=== PATIENT | male | born 1940 | race Caucasian/White ===

== ENCOUNTER → 2017-10-02 06:45 | Outpatient (CLI) | payer MEDICARE, SELFPAY ==
[2017-10-02 07:42] LABS: Hematocrit 47.3 % (40-54); Mean Corp Hgb Conc 33.8 g/gl (32-36); Mean Corpuscular Hgb 31.3 pg (27.0-32.0); Mean Corpuscular Volume 92.4 fL (80-94); Mean Platelet Vol. 9.9 fl (6.2-12.0); Platelet Count 169 K/mm3 (150-450); RBC Distribution Width CV 13.7 % (11.6-14.6); RBC Distribution Width SD 45.9 fl (35.1-43.9); Red Blood Count 5.12 M/mm3 (4.6-6.2)
[2017-10-02 07:45] LABS: Scan Indicated on CBC? Y/N NO
[2017-10-02 08:10] LABS: Microalbumin,Random Urine 6.9 mg/L (NO RANGE EST.); Microalbumin:Creatinine Ratio 4.7 mg/g CRE (<30 mg/g CRE)
[2017-10-02 08:20] LABS: ALB/GLOB Ratio 1.1 RATIO (0.9-2.4); AST(SGOT) 44 U/L (15-37); Alanine Aminotransfer ALT/SGPT 76 U/L (16-61); Albumin, Serum 3.6 g/dL (3.2-5.0); Alkaline Phosphatase 73 U/L (45-117); Anion Gap 6 (5-15); BUN 19 mg/dL (7-18); BUN/Creat Ratio 15.6 RATIO (10-20); Calcium,Total 8.6 mg/dL (8.5-10.1); Chloride 103 mmol/L (98-107); Creatinine, Serum 1.22 mg/dL (0.70-1.30); EST Glomerular Filtration Rate 61 mL/min (>60); Est Glom Filt Rate - Afr Amer 74 mL/min (>60); Globulin 3.3 g/dL (2.2-4.2); Glucose 158 mg/dL (74-106); Potassium 4.4 mmol/L (3.5-5.1); Protein, Total 6.9 g/dL (6.4-8.2); Sodium Level 139 mmol/L (136-145); Thyroid Stim Hormone (TSH) 4.37 uIU/mL (0.358-3.74)
== END ==
PROVIDERS: Family Provider Family Medicine; PCP Family Medicine; Visit Provider Family Medicine
DX: E11.9 Type 2 diabetes mellitus without complications (principal)
CPT/HCPCS: 36415; 80053; 82043; 82570; 84443; 85027

== ENCOUNTER → 2018-09-24 06:41 | Outpatient (CLI) | payer MEDICARE, SELFPAY ==
[2018-09-24 08:07] LABS: Microalbumin,Random Urine 11.1 mg/L (NO RANGE EST.); Microalbumin:Creatinine Ratio 6.5 mg/g CRE (<30 mg/g CRE)
[2018-09-24 08:10] LABS: ALB/GLOB Ratio 1.2 RATIO (0.9-2.4); AST(SGOT) 35 U/L (15-37); Alanine Aminotransfer ALT/SGPT 60 U/L (16-61); Alkaline Phosphatase 66 U/L (45-117); Anion Gap 9 (5-15); BUN 25 mg/dL (7-18); BUN/Creat Ratio 18.8 RATIO (10-20); Calcium,Total 9.5 mg/dL (8.5-10.1); Chloride 103 mmol/L (98-107); Creatinine, Serum 1.33 mg/dL (0.70-1.30); EST Glomerular Filtration Rate 55 mL/min (>60); Est Glom Filt Rate - Afr Amer 67 mL/min (>60); Globulin 3.3 g/dL (2.2-4.2); Glucose 154 mg/dL (74-106); PSA,Total - Annual Screen 1.83 ng/mL (0.00-4.00); Potassium 4.5 mmol/L (3.5-5.1); Protein, Total 7.3 g/dL (6.4-8.2); Sodium Level 139 mmol/L (136-145)
== END ==
PROVIDERS: Family Provider Family Medicine; PCP Family Medicine; Referring Provider Family Medicine; Visit Provider Family Medicine
DX: E11.9 Type 2 diabetes mellitus without complications (principal); Z12.5 Encounter for screening for malignant neoplasm of prostate
CPT/HCPCS: 36415; 80053; 82043; 82570; 84153; G0103

== ENCOUNTER 2019-08-06 12:20 | Emergency (ER) | payer MEDICARE, SELFPAY ==
[2019-08-06 12:22] VITALS: BP 135/92; PULSE 88; RESP 17; TEMP 36.8; O2SAT 99; BMI 28.4
--- NOTE | 2019-08-06 12:50 | RAD_ITS ---
STUDY: X-RAY CHEST REASON FOR EXAM: Male, 78 years old. SOB TECHNIQUE: Single AP portable view of the chest. COMPARISON: Prior study of 10/12/2012 FINDINGS: financial institution vice president leads are present. There are minimal linear fibrotic or atelectatic changes of the right midlung field, new in the interval. There is no demonstrated pleural abnormality. Normal size heart. Normal mediastinum and ava. Normal visualized pulmonary arteries. There are calcified plaques of the aortic arch. There are diffuse degenerative changes of the visualized thoracic spine. Normal visualized ribs, clavicles, and shoulders. There is no demonstrated abnormality of the visualized soft tissue structures of the upper abdomen. RAD/Chest 1 View (Portable) IMPRESSION: Minimal linear fibrosis or atelectasis of the right midlung field, new in the interval. Calcified plaques of the aortic arch. Degenerative changes of the thoracic spine. Electronically Signed: Ken Jama MD at 13:58 EDT , Service support ,
--- NOTE | 2019-08-06 12:51 | EKG12_ITS ---
Test Reason : SOB Blood Pressure : / mmHG Vent. Rate : 068 BPM Atrial Rate : 068 BPM P-R Int : 160 ms QRS Dur : 084 ms QT Int : 370 ms P-R-T Axes : 081 041 060 degrees QTc Int : 393 ms Normal sinus rhythm Normal ECG Confirmed by DIA HUMPHREY, BAILEY ([id number]), editor in chief ANA BOLTON ([id number]) on 08/08/2019 12:54:14 PM Referred By: BALJIT Confirmed By:BAILEY ALVARES MD
[2019-08-06 13:20] VITALS: O2SAT 96
[2019-08-06 13:28] LABS: Absolute Lymphocyte Count 8.57 X10^3/uL (0.83-4.51); Basophil# 0.06 X10^3/uL; Basophil% 0.4 % (0-1); Eosinophil# 0.08 X10^3/uL; Eosinophils% 0.5 % (0-5); Hemoglobin 15.7 g/dL (13.0-16.5); Lymphocyte # 8.57 X10^3/ul (4.0); Lymphocyte % 57.9 % (19-41); Mean Corp Hgb Conc 34.1 g/dL (32-36); Mean Corpuscular Hgb 31.5 pg (27.0-32.0); Mean Corpuscular Volume 92.4 fL (80-94); Monocyte# 1.01 X10^3/uL; Monocyte% 6.8 % (0-10); NRBC Flagged by Analyzer 0 % (0-5); Neutrophil # 5.03 X10^3/uL (2.7-7.7); Neutrophil % 34.1 % (47-70); POSITIVE DIFFERENTIAL YES; POSITIVE MORPHOLOGY YES; Platelet Count 129 K/mm3 (150-450); RBC Distribution Width CV 13.8 % (11.6-14.6); RBC Distribution Width SD 46.5 fl (35.1-43.9); Red Blood Count 4.98 M/mm3 (4.6-6.2); White Blood Count 14.8 K/mm3 (4.4-11.0)
[2019-08-06 13:30] VITALS: BP 168/83; PULSE 70; RESP 16; TEMP 36.2; O2SAT 99
[2019-08-06 13:31] LABS: Differential Indicated SCAN CRITERIA MET
[2019-08-06] MEDS: 0.9% Normal Saline 1,000 ML 15 ML IV (13:35)
[2019-08-06 13:40] VITALS: BP 168/83; PULSE 79; RESP 16
[2019-08-06 13:40] LABS: D-Dimer Quantitative (DVT/PE) 0.41 FEU/ug/m (0.27-0.49)
[2019-08-06 13:43] LABS: Differential Comment SCANNED; Reactive Lymphocyte 2+
[2019-08-06 13:47] LABS: Anion Gap 5 (5-15); BUN 24 mg/dL (7-18); BUN/Creat Ratio 17.6 RATIO (10-20); Chloride 104 mmol/L (98-107); Creatinine, Serum 1.36 mg/dL (0.70-1.30); EST Glomerular Filtration Rate 54 mL/min (>60); Est Glom Filt Rate - Afr Amer 65 mL/min (>60); Estimated Creatinine Clearance 48.96 ml/min; Glucose 166 mg/dL (74-106); Potassium 4.4 mmol/L (3.5-5.1); Sodium Level 136 mmol/L (136-145)
[2019-08-06 13:57] LABS: BNP,B-Type NATRIURETIC PEPTIDE 25.5 pg/mL (0-100)
--- NOTE | 2019-08-06 14:20 | ED.VISSUMM ---
- ER Visit Summary Date of Service: 08/06/19 Chief Complaint: [Shortness of breath] History of Present Illness: The patient is a 78 M [presents to the emergency department with complaint of shortness of breath that has had for years but seems to have progressively worsened over last 6 days. Patient describes episodes of exertional dyspnea. Patient states that the other day he thought his cat was can get sick on the carpet and so he rushed over and picked her up and put her on the tile floor in the kitchen and afterwards noted that he was very dyspneic and felt like he could not catch his breath. Patient today was pulling some weeds and felt very short of breath afterwards. He denies any chest pain. He denies any fever or cough. He denies recent illness. Patient is a diabetic and has history of hypertension. He has no heart history. He denies recent travel or surgery.] Physical Examination: [HEENT-PERRLA, EOMI. Cranial nerves II through XII grossly intact. TMs clear. Mucous membranes moist. No adenopathy. Cardiovascular-regular rate and rhythm without murmur or ectopy Lungs-clear to auscultation, chest wall stable without crepitus or subcu emphysema Abdomen-normoactive bowel sounds, soft, nontender, no rebound or rigidity, no peritoneal signs. Extremities-intact ?4, normal range of motion, normal pulses, atraumatic] Test Results: [CBC with differential obtained showed a slight elevated white count of 14.8 and when compared with 2018 his white count at that time was 14,000 as well. Hemoglobin of 16 and hematocrit 46, plates 129. Chemistries unremarkable. Troponin less than 0.015. EKG showed a sinus rhythm with a ventricular rate of 68 bpm with no acute segment changes. D-dimer was normal at 0.41. Chest x-ray showed some atelectasis in the right lower lobe otherwise nothing acute.] Emergency Department Course and Treatment: [Patient had an IV line established and was placed on the monitor.] Treatment Plan: [I discussed with patient admission versus out patient follow-up. I felt that since etiology of his exertional dyspnea is unclear we should rule out cardiac etiology and perform more testing such as possibly stress testing. Patient understands I do not do stress tests on Sundays which is tomorrow and we would have to be here till Thursday. Patient states that he would prefer to go home actually does not want to be admitted. He would prefer to follow-up with his primary care physician next week as he has an appointment to see his primary care physician. Patient also is not had any chest pain and states he has had symptoms for years just seemed to have worsened over the last 6 days or so. Patient is comfortable going home. He is not had any chest pain. He is advised to return if increasing shortness of breath, chest pain, or condition should worsen anyway.] Disposition: [Discharged home in stable condition] Impression: [Dyspnea-etiology uncertain] This note was generated with [employer] dictation software. It may contain incorrect words, spelling, and punctuation that were not noted in review of the chart prior to signing ED Disposition - Plan for ED Patient: Referrals: Armando Ardon MD [Primary Care Provider] -
[2019-08-06 14:28] VITALS: BP 161/78; PULSE 65; RESP 13; TEMP 36.7; O2SAT 99
--- NOTE | 2019-08-06 14:28 | ED.DEP ---
ED Disposition - Plan for ED Patient: Instructions: ED Dyspnea Referrals: Armando Ardon MD [Primary Care Provider] - 3-5 Days
== END 2019-08-06 14:35 | disposition home or self-care (01) ==
LOC: ED 13:27
PROVIDERS: Emergency Provider Emergency Medicine; PCP Family Medicine
DX: R06.00 Dyspnea, unspecified (principal); E11.9 Type 2 diabetes mellitus without complications; I10 Essential (primary) hypertension; R06.02 Shortness of breath
CPT/HCPCS: 71045; 80048; 83880; 84484; 85025; 85379; 93005; 99283; J7030

== ENCOUNTER → 2019-08-22 06:06 | Outpatient (CLI) | payer MEDICARE, SELFPAY ==
[2019-08-06 12:22] VITALS: BMI 28.4
--- NOTE | 2019-08-22 10:35 | STRESSREP ---
Stress Test Report Pharmacologic myocardial perfusion stress test. 78-year-old man with a history of chest pain. Stress protocol: Resting EKG demonstrates normal sinus rhythm with a rate of 69 bpm normal intervals are noted resting blood pressure is 138/70 mmHg. 0.4 mg of regadenoson was infused per usual protocol. Continuous EKG monitoring was performed. The maximum heart rate attained was 96 bpm which was 68% of maximum predicted heart rate the maximum workload was 1 metabolic equivalent. At rest there were no ST or T wave changes noted suggest abnormal flow reserve at peak infusion nonspecific ST-T wave changes were noted. The resting blood pressure was 138/70 with a final blood pressure of 130/68 mmHg. Myocardial perfusion protocol. 13.8 mCi of technetium 99m sestamibi was injected at rest. 0.4 mg of regadenoson was infused per usual protocol. At peak infusion 42.0 mCi of technetium 99m sestamibi was injected stress images were obtained stress and rest images were reconstructed and compared in the short axis vertical and horizontal long axis. Gated images were also obtained per Perfusion SPECT analysis: Review of the images demonstrate normal uptake of tracer noted in the septum anterior wall and lateral wall. There is mild reduction of perfusion noted in the mid inferior wall on the stress images with minimal improvement on the resting images suggesting a possible mild amount of inferior ischemia. Gated SPECT analysis: The gated ejection fraction is 67%. Conclusion: Pharmacologic myocardial perfusion stress test with possible mild inferior ischemia. Preserved ejection fraction.
== END ==
PROVIDERS: PCP Family Medicine; Referring Provider Family Medicine; Visit Provider Family Medicine
DX: R06.09 Other forms of dyspnea (principal)
CPT/HCPCS: 78452; 93017; A9500; A4216; J2785

== ENCOUNTER → 2019-09-26 13:30 | Outpatient (CLI) | payer MEDICARE, SELFPAY ==
[2019-09-14 08:46] VITALS: BMI 28.7
[2019-09-14 12:17] LABS: BNP,B-Type NATRIURETIC PEPTIDE 28.6 pg/mL (0-100)
--- NOTE | 2019-09-26 13:31 | ECHOCS_ITS ---
Reason For Study: DYSPNEA/SOB Procedure This was a 2D Doppler, Color Flow transthoracic echocardiogram. The study was technically difficult. Due to poor accoustic windows. Exam performed in department. Left Ventricle Normal left ventricle. Left ventricular systolic function is normal. The estimated ejection fraction is 60 %. Stage 1 diastolic dysfunction. No regional wall motion abnormalities noted. Right Ventricle Normal RV size. Normal systolic function. Atria Normal left atrium. Normal right atrium. Tricuspid Valve Normal tricuspid valve. Mild tricuspid valve insufficiency. Pulmonary artery systolic pressure is 24 mmHg. Aortic Valve Normal aortic valve. Pulmonic Valve Normal pulmonic valve. Great Vessels Normal aortic root. The pulmonary artery is normal size. Normal inferior vena cava. Pericardium/Pleural No pericardial effusion. Medication 22 gauge I.V. with prn adaptor inserted into right arm. Diluted definity 3.0ml given slow IV push to enhance endocardial definition. MMode/2D Measurements & Calculations LVIDd: 4.6 cm IVSd: 0.94 cm Ao root diam: 3.5 cm LVIDs: 3.1 cm LVPWd: 1.1 cm FS: 31.8 % LAV(MOD-bp): 31.7 ml LA A4 area: 13.9 cm2 LA dimension(2D): 3.3 cm LAV(MOD-bp) Indexed: 14.5 ml/m2 LAV(MOD-sp2): 30.0 ml LAV(MOD-sp4): 29.4 ml RA A4 area: 12.3 cm2 Doppler Measurements & Calculations MV E max haja: 51.0 cm/sec Lat Peak E' Haja: 6.8 cm/sec Med Peak E' Haja: 5.7 cm/sec MV A max haja: 63.7 cm/sec E/E' lat: 7.5 E/E' med: 8.9 MV E/A: 0.80 Ao V2 max: 107.2 cm/sec LV V1 max: 87.9 cm/sec PA V2 max: 117.6 cm/sec Ao max P.6 mmHg LV V1 max P.1 mmHg TR max haja: 231.2 cm/sec TR max P.4 mmHg Interpretation Summary Normal left ventricle. Left ventricular systolic function is normal. The estimated ejection fraction is 60 %. Stage 1 diastolic dysfunction. Contrast injection was performed. Ordering Physician: Forrest Humphreys Referring Physician: Armando Ardon Performed By: Lyn Martinez RDCS, RVT
== END ==
PROVIDERS: PCP Family Medicine; Referring Provider Internal Medicine Cardiovascular Disease; Visit Provider Internal Medicine Cardiovascular Disease
DX: R06.00 Dyspnea, unspecified (principal); R06.02 Shortness of breath
CPT/HCPCS: 36415; 83880; 93306; Q9957; A4216; C8929

== ENCOUNTER → 2020-01-16 07:55 | Outpatient (CLI) | payer MEDICARE, SELFPAY ==
[2019-10-05 11:25] VITALS: BMI 28.5
[2020-01-16 08:41] LABS: Hematocrit 50.5 % (40-54); Hemoglobin 16.4 g/dL (13.0-16.5); Mean Corp Hgb Conc 32.5 g/dL (32-36); Mean Corpuscular Hgb 30.9 pg (27.0-32.0); Mean Corpuscular Volume 95.1 fL (80-94); Mean Platelet Vol. 9.8 fl (6.2-12.0); Platelet Count 164 K/mm3 (150-450); RBC Distribution Width CV 13.7 % (11.6-14.6); RBC Distribution Width SD 47.9 fl (35.1-43.9); Red Blood Count 5.31 M/mm3 (4.6-6.2); White Blood Count 20.3 K/mm3 (4.4-11.0)
[2020-01-16 09:24] LABS: ALB/GLOB Ratio 1.1 RATIO (0.9-2.4); AST(SGOT) 35 U/L (15-37); Alanine Aminotransfer ALT/SGPT 42 U/L (16-61); Alkaline Phosphatase 86 U/L (45-117); Anion Gap 5 (5-15); BUN 20 mg/dL (7-18); BUN/Creat Ratio 15.7 RATIO (10-20); Calcium,Total 9.7 mg/dL (8.5-10.1); Chloride 103 mmol/L (98-107); Creatinine, Serum 1.27 mg/dL (0.70-1.30); EST Glomerular Filtration Rate 58 mL/min (>60); Est Glom Filt Rate - Afr Amer 70 mL/min (>60); Globulin 3.7 g/dL (2.2-4.2); Glucose 148 mg/dL (74-106); Potassium 4.2 mmol/L (3.5-5.1); Protein, Total 7.7 g/dL (6.4-8.2); Sodium Level 136 mmol/L (136-145); Thyroid Stim Hormone (TSH) 4.91 uIU/mL (0.358-3.74)
[2020-01-16 15:43] LABS: Microalbumin,Random Urine 18.3 mg/L (NO RANGE EST.); Microalbumin:Creatinine Ratio 12.1 mg/g CRE (<30 mg/g CRE)
== END ==
PROVIDERS: PCP Family Medicine; Referring Provider Family Medicine; Visit Provider Family Medicine
DX: E11.9 Type 2 diabetes mellitus without complications (principal)
CPT/HCPCS: 36415; 80053; 82043; 82570; 83036; 84443; 85027

== ENCOUNTER 2021-07-01 08:04 | Outpatient (CLI) | payer MEDICARE, SELFPAY ==
[2021-07-01 08:35] LABS: Hematocrit 50.3 % (40-54); Hemoglobin 16.5 g/dL (13.0-16.5); Mean Corp Hgb Conc 32.8 g/dL (32-36); Mean Corpuscular Hgb 30.6 pg (27.0-32.0); Mean Corpuscular Volume 93.1 fL (80-94); Mean Platelet Vol. 9.5 fl (6.2-12.0); Platelet Count 146 K/mm3 (150-450); RBC Distribution Width CV 14.6 % (11.6-14.6); RBC Distribution Width SD 50.2 fl (35.1-43.9); White Blood Count 28.4 K/mm3 (4.4-11.0)
[2021-07-01 08:53] LABS: Hemoglobin A1c 6.7 % (3.8-5.6)
[2021-07-01 08:56] LABS: Microalbumin,Random Urine 10.1 mg/L (NO RANGE EST.); Microalbumin:Creatinine Ratio 8.2 mg/g CRE (<30 mg/g CRE)
[2021-07-01 09:35] LABS: ALB/GLOB Ratio 1.1 RATIO (0.9-2.4); AST(SGOT) 25 U/L (15-37); Alanine Aminotransfer ALT/SGPT 27 U/L (16-61); Albumin, Serum 4.1 g/dL (3.2-5.0); Alkaline Phosphatase 83 U/L (45-117); Anion Gap 5 (5-15); BUN 30 mg/dL (7-18); BUN/Creat Ratio 21.6 RATIO (10-20); Calcium,Total 9.1 mg/dL (8.5-10.1); Chloride 103 mmol/L (98-107); Cholesterol 143 mg/dL (200); Creatinine, Serum 1.39 mg/dL (0.70-1.30); EST Glomerular Filtration Rate 52 mL/min (>60); Est Glom Filt Rate - Afr Amer 63 mL/min (>60); Globulin 3.6 g/dL (2.2-4.2); Glucose 146 mg/dL (74-106); High Density Lipoprotein 25 mg/dL; Potassium 4.8 mmol/L (3.5-5.1); Protein, Total 7.7 g/dL (6.4-8.2); Sodium Level 135 mmol/L (136-145); Triglycerides 150 mg/dL; Very Low Density Lipoprotein 30 mg/dL (5-40)
== END 2021-07-01 23:59 | disposition home or self-care (01) ==
LOC: LAB 08:05
PROVIDERS: PCP Family Medicine; Referring Provider Family Medicine; Visit Provider Family Medicine
DX: E11.9 Type 2 diabetes mellitus without complications (principal)
CPT/HCPCS: 36415; 80053; 80061; 82043; 82570; 83036; 84443; 85027

== ENCOUNTER 2022-12-01 04:29 | Observation (INO) | payer MEDICARE, SELFPAY ==
[2022-12-01] VITALS (16 sets, daily range): BP systolic 124–171; BP diastolic 55–98; PULSE 55–74; RESP 13–18; TEMP 36.2–36.8; O2SAT 92–97; BMI 27.2
--- NOTE | 2022-12-01 04:35 | EKG12_ITS ---
Test Reason : DYSRHYTHMIA Blood Pressure : / mmHG Vent. Rate : 065 BPM Atrial Rate : 065 BPM P-R Int : 152 ms QRS Dur : 086 ms QT Int : 422 ms P-R-T Axes : 067 031 046 degrees QTc Int : 438 ms Sinus rhythm with Premature supraventricular complexes Otherwise normal ECG Confirmed by DIA HUMPHREY, BAILEY ([id number]), publishing editor JASON WEAVER ([id number]) on 12/04/2022 1:52:19 PM Referred By: JUNE Confirmed By:BAILEY ALVARES MD
--- NOTE | 2022-12-01 04:45 | RAD_ITS ---
STUDY: X-RAY CHEST REASON FOR EXAM: Male, 82 years old. Chest pain TECHNIQUE: Single AP portable view of the chest. COMPARISON: August 06, 2019 chest x-ray FINDINGS: The lungs are clear and expanded. There is no demonstrated pleural abnormality. Normal size heart. Normal mediastinum and ava. Normal visualized pulmonary arteries. Normal visualized aortic arch and descending thoracic aorta. There are diffuse degenerative changes of the visualized thoracic spine. There is degenerative osteoarthritis of the bilateral shoulders. There is no demonstrated abnormality of the visualized soft tissue structures of the upper abdomen. RAD/Chest 1 View (Portable) IMPRESSION: Degenerative changes, as described above. No demonstrated acute cardiopulmonary process. Electronically Signed: Pamela Jones MD at 5:00 EDT ,
[2022-12-01 04:48] LABS: Absolute Lymphocyte Count 52.25 X10^3/uL (0.83-4.51); Absolute Neutrophil Count 6.5 X10^3/uL (2.0-7.7); Basophil# 0.07 X10^3/uL; Basophil% 0.1 % (0-1); Eosinophil# 0.22 X10^3/uL; Eosinophils% 0.4 % (0-5); Hematocrit 46.5 % (40-54); Hemoglobin 14.8 g/dL (13.0-16.5); Lymphocyte # 52.25 X10^3/ul (0.83-4.51); Mean Corp Hgb Conc 31.8 g/dL (32-36); Mean Corpuscular Hgb 30.7 pg (27.0-32.0); Mean Corpuscular Volume 96.5 fL (80-94); Mean Platelet Vol. 9.5 fl (6.2-12.0); Monocyte# 2.98 X10^3/uL; Monocyte% 4.8 % (0-10); NRBC Flagged by Analyzer 0 % (0-5); Neutrophil # 6.52 X10^3/uL (2.7-7.7); Neutrophil % 10.4 % (47-70); POSITIVE COUNT YES; POSITIVE DIFFERENTIAL YES; POSITIVE MORPHOLOGY YES; Platelet Count 103 K/mm3 (150-450); RBC Distribution Width CV 15.7 % (11.6-14.6); RBC Distribution Width SD 55.4 fl (35.1-43.9); Red Blood Count 4.82 M/mm3 (4.6-6.2)
--- NOTE | 2022-12-01 05:03 | ED.VIS.DYS ---
HPI History of Present Illness Chief Complaint: Shortness of Breath Narrative Narrative: 82-year-old male with history of CLL recently diagnosed, hypertension, hyperlipidemia presenting with shortness of breath. This onset of this was Thursday. Is been getting worse. He has shortness of breath with exertion. No fevers, chills, cough. No nausea, vomiting. He does not feel ill. He does not have chest pain. Family reportedly checked his pulse ox at home and it was 89% resting. It dropped lower when he ambulated. 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 Chronic renal insufficiency CLL (chronic lymphocytic leukemia) Essential (primary) hypertension Hyperlipidemia Malignant melanoma Non-alcoholic fatty liver disease Osteoarthritis Psoriasis Sciatic nerve disease Type 2 diabetes mellitus Home Medications metformin 1,000 mg tablet 1,000 mg PO BID 01/20/13 [History Last Taken 08/06/19] triamterene 37.5 mg-hydrochlorothiazide 25 mg tablet 1 tab PO DAILY 01/20/13 [History Last Taken 08/06/19] lisinopril 10 mg tablet 10 mg PO QPM 10/05/19 [History Last Taken Unknown] metoprolol succinate 100 mg tablet,extended release 24 hr See Rx Instructions .Route .COMPLEX #90 tabs 08/06/22 [Rx Last Taken Unknown] Allergy/AdvReac Type Severity Reaction Status Date / Time Penicillins Allergy Hives Verified 12/01/22 04:30 Family History Father Heart disease Thoracic aortic aneurysm (TAA) Surgical History History of excision of lesion Social History household members: none Smoking Status: Former smoker quit date: 03/23/75 pack-years: 10 how long ago did patient quit smokin alcohol intake: current alcohol intake frequency: a few times a week substance use type: does not use caffeine: Yes Type: coffee Number of servings: 1 ROS ROS ED Constitutional Constitutional ED: Denies chills, fever(s) or sweats Eyes Eyes: Denies blurry vision or change in vision ENT ENT ED: Denies ear pain or sore throat Cardiovascular Cardiovascular: Denies chest pain, palpitations or racing heartbeat Respiratory/Chest Respiratory/Chest: Reports dyspnea and dyspnea on exertion; Denies cough or sputum Gastrointestinal Gastrointestinal: Denies abdominal pain, constipation, diarrhea, nausea or vomiting Genitourinary Genitourinary ED: Denies dysuria, hematuria or urinary frequency Musculoskeletal Musculoskeletal: Denies arthralgias, myalgias or neck pain Integumentary Denies abscess, Abrasions or rash Neurologic Neurologic: Denies headache(s), paresthesias or weakness Psychiatric Psychiatric: Denies anxiety, depression, suicidal ideation or suicidal thoughts Endocrine Endocrinology: Denies polydipsia or polyuria EXAM Physical Exam Const Vital Signs: 12/01/22 04:30 12/01/22 04:30 12/01/22 04:32 Temperature 97.8 F 97.8 F Temperature Source Temporal Temporal Pulse Rate 66 67 Respiratory Rate 13 14 Respiratory Effort Short of Breath Blood Pressure 171/66 H 171/66 H Blood Pressure Mean 101 101 Pulse Ox 97 97 Oxygen Delivery Method Oxygen Flow Rate (L/min) 12/01/22 05:15 12/01/22 05:37 Temperature Temperature Source Pulse Rate 60 Respiratory Rate 16 Respiratory Effort Blood Pressure 127/61 H Blood Pressure Mean 83 Pulse Ox 95 Oxygen Delivery Method Nasal Cannula Room Air Oxygen Flow Rate (L/min) 2.5 Positive well nourished General Appearance ED: NAD HEENT Reports moist mucous membranes atraumatic Eyes PERRL and EOMs intact bilaterally Neck no lymphadenopathy Resp normal respiratory effort and clear to auscultation bilaterally Cardio regular rate and regular rhythm Neuro oriented x3 and CN's II-XII intact bilaterally Sensorium / Orientation: alert Motor Exam: general weakness Psych mental status grossly normal Skin no wounds and skin turgor normal MDM MDM MDM Narrative Medical decision making narrative: Patient presenting with dyspnea. He is extremely symptomatic when ambulating. He is only dropped to 89% but again was severely dyspneic. Differential includes acute coronary syndrome, CHF, pneumonia, dehydration, electrolyte normalities, PE. CBC will be obtained to assess white blood cell count, hemoglobin, platelets. BMP to assess renal function, electrolytes. High-sensitivity troponin and EKG to assess for ischemia or dysrhythmia. BNP to assess for CHF. Chest x-ray to rule out pneumonia or CHF. D-dimer will be obtained to assess for clot. CBC shows a leukocytosis of 62.2 which is higher than the 45 that he recalls. Hemoglobin stable at 14.8. Platelets low at 103 which is lower than his previous at 146. High-sensitivity troponin is 11. EKG on my interpretation is sinus rhythm at 65 bpm without evidence of ischemia. Chest x-ray to my interpretation shows no acute process. Creatinine slightly elevated today at 1.43 in June is 1.39. Given his severe dyspnea I spoke with the hospitalist for admission. The hospitalist will obtain a CTA on the medical floor. Impression: 1. Dyspnea 2. Elevated BNP 3. Leukocytosis 4. History of CLL Lab Data Labs: Laboratory Results - last 24 hr 12/01/22 04:36 WBC 62.2 H* RBC 4.82 Hgb 14.8 Hct 46.5 MCV 96.5 H MCH 30.7 MCHC 31.8 L RDW Std Deviation 55.4 H RDW Coeff of [place] 15.7 H Plt Count 103 L MPV 9.5 Immature Gran % (Auto) 0.300 Neut % (Auto) 10.4 L Lymph % (Auto) 84.0 H Tompkins % (Auto) 4.8 Eos % (Auto) 0.4 Baso % (Auto) 0.1 Absolute Neuts (auto) 6.5 Absolute Lymphs (auto) 52.25 H Nucleated RBC % 0 Differential Comment SCANNED Diff Path Review May foll Reactive Lymphocytes 3+ Smudge Cells 1+ H D-Dimer Quant (PE/DVT) 0.64 H* Sodium 140 Potassium 4.0 Chloride 105 Carbon Dioxide 28.0 Anion Gap 7 BUN 22 H Creatinine 1.43 H Estim Creat Clear Calc 43.46 Est GFR (MDRD) Af Amer 61 Est GFR (MDRD) Non-Af 50 L BUN/Creatinine Ratio 15.4 Glucose 202 H Calcium 9.2 Troponin I High Sens 11 B-Natriuretic Peptide 313.8 H Radiography Diagnostic Testing: Clinical Impression(s) from Imaging Studies Chest X-Ray 12/01/22 04:45 IMPRESSION: Degenerative changes, as described above. No demonstrated acute cardiopulmonary process. Electronically Signed: Pamela Jones MD at 5:00 EDT , Discharge Plan Triage Chief Complaint: Shortness of Breath ED Provider: Chris Vargas Dx/Rx/DC Orders Prescriptions: No Action metformin 1,000 MG tablet 1,000 mg PO BID triamterene-hydrochlorothiazid 1 EACH tablet 1 tab PO DAILY lisinopril 10 mg tablet 10 mg PO QPM metoprolol succinate 100 mg tablet extended release 24 hr See Rx Instructions .ROUTE .COMPLEX Qty: 90 3RF Dose Instruction: TAKE 1 TABLET DAILY Rx Instructions: TAKE 1 TABLET DAILY Primary Care Provider: Armando Ardon Referrals: Armando Ardon MD [Primary Care Provider] -
[2022-12-01 05:07] LABS: Anion Gap 7 (5-15); BUN 22 mg/dL (7-18); BUN/Creat Ratio 15.4 RATIO (10-20); Calcium,Total 9.2 mg/dL (8.5-10.1); Chloride 105 mmol/L (98-107); Creatinine, Serum 1.43 mg/dL (0.70-1.30); EST Glomerular Filtration Rate 50 mL/min (>60); Est Glom Filt Rate - Afr Amer 61 mL/min (>60); Estimated Creatinine Clearance 43.46 ml/min; Glucose 202 mg/dL (74-106); Sodium Level 140 mmol/L (136-145); Troponin-I HS (w/2H Reflex) 11 pg/mL (3.0-78.0)
[2022-12-01 05:09] LABS: Differential Indicated SCAN CRITERIA MET; White Blood Count 62.2 K/mm3 (4.4-11.0)
[2022-12-01 05:27] LABS: BNP,B-Type NATRIURETIC PEPTIDE 313.8 pg/mL (0-100)
[2022-12-01 05:31] LABS: Differential Comment SCANNED; Reactive Lymphocyte 3+; Smudge Cells 1+
[2022-12-01 06:02] LABS: D-Dimer Quantitative (DVT/PE) 0.64 FEU/ug/m (0.27-0.49)
--- NOTE | 2022-12-01 06:08 | PCM.HP.STD ---
HPI - General General Date of Admission: 12/01/22 Date of Service: 12/01/22 Chief Complaint: Dyspnea, worse with exertion HPI Narrative The patient is an 82 y/o M w/ PMHx: Diabetes mellitus type II, CLL, Hx Malignant Melanoma, Psoriasis, BPH, HTN, HLD, CKD stage III unclear subtype who presents to the [facility] ED on 12/01/22 with history of onset shortness of breath starting the Thursday prior progressively worsening, worse with exertion with no history of recent fevers, chills, cough, nausea or emesis and no chest discomfort nor pleuritic chest pain with pulse oximeter at home noted to be 89% at resting however he drops if he ambulates prompting ED evaluation. He notes primarily staying in his armchair because of his debility, weakness and dyspnea since its onset. Work-up in the ED included T97.8, heart rate 66, BP 171/66, respiratory rate 14, 97% on 2.5 L nasal cannula, patient decreases to 89% with exertion, CBC with WC 62.2, hemoglobin 14.8, platelet 103 with significant lymphocytosis with underlying CLL, BMP with BUN/creatinine 22/1.43, glucose 202, troponin 11, chest x-ray with degenerative changes with no acute cardiopulmonary findings, BNP 313.8, D-dimer 0.64, EKG with SR without acute evidence of ischemia. [facility] Medical History Benign nodular prostatic hyperplasia without lower urinary tract symptoms Chronic renal insufficiency CLL (chronic lymphocytic leukemia) Essential (primary) hypertension Hyperlipidemia Malignant melanoma Non-alcoholic fatty liver disease Osteoarthritis Psoriasis Sciatic nerve disease Type 2 diabetes mellitus Home Medications metformin 1,000 mg tablet 1,000 mg PO BID 01/20/13 [History Last Taken 08/06/19] triamterene 37.5 mg-hydrochlorothiazide 25 mg tablet 1 tab PO DAILY 01/20/13 [History Last Taken 08/06/19] lisinopril 10 mg tablet 10 mg PO QPM 10/05/19 [History Last Taken Unknown] metoprolol succinate 100 mg tablet,extended release 24 hr See Rx Instructions .Route .COMPLEX #90 tabs 08/06/22 [Rx Last Taken Unknown] Allergy/AdvReac Type Severity Reaction Status Date / Time Penicillins Allergy Hives Verified 12/01/22 04:30 Family History Father Heart disease Thoracic aortic aneurysm (TAA) Mother No problems noted. Surgical History History of excision of lesion Social History household members: none Smoking Status: Former smoker quit date: 03/23/75 pack-years: 10 how long ago did patient quit smokin alcohol intake: current alcohol intake frequency: a few times a week substance use type: does not use caffeine: Yes Type: coffee Number of servings: 1 ROS ROS Narrative Admission Review of Systems: CONSTITUTIONAL: No weight loss, fever, chills, + weakness or fatigue. HEENT: Eyes: No visual loss, blurred vision, double vision or yellow sclerae. Ears, Nose, Throat: No hearing loss, sneezing, congestion, runny nose or sore throat. SKIN: No rash or itching, lesions, wounds. CARDIOVASCULAR: No chest pain, chest pressure or chest discomfort, palpitations, edema, orthopnea, syncopal events. RESPIRATORY: + Dyspnea, worse with any exertion attempts. No cough or sputum, wheezing, hemoptysis. GASTROINTESTINAL: No anorexia, nausea, vomiting or diarrhea, abdominal pain, melena, BRBPR. GENITOURINARY: No dysuria, frequency, urgency or retention. NEUROLOGICAL: No headache, dizziness, syncope, paralysis, ataxia, numbness or tingling in the extremities, focal weakness, change in bowel or bladder control, seizure. MUSCULOSKELETAL: + muscle, back pain, joint pain or stiffness. HEMATOLOGIC: + Easy bleeding or bruising. LYMPHATICS: No enlarged nodes. No history of splenectomy. PSYCHIATRIC: No history of depression or anxiety. ENDOCRINOLOGIC: No reports of sweating, cold or heat intolerance. No polyuria or polydipsia. ALLERGIES: + History of hives. Vital Signs Vital Signs Vital Signs: 12/01/22 04:30 12/01/22 04:30 12/01/22 04:32 Temperature 97.8 F 97.8 F Temperature Source Temporal Temporal Pulse Rate 66 67 Respiratory Rate 13 14 Respiratory Effort Short of Breath Blood Pressure 171/66 H 171/66 H Blood Pressure Mean 101 101 Pulse Ox 97 97 Oxygen Delivery Method Oxygen Flow Rate (L/min) 12/01/22 05:15 12/01/22 05:37 Temperature Temperature Source Pulse Rate 60 Respiratory Rate 16 Respiratory Effort Blood Pressure 127/61 H Blood Pressure Mean 83 Pulse Ox 95 Oxygen Delivery Method Nasal Cannula Room Air Oxygen Flow Rate (L/min) 2.5 Weight Weight: 206 lb 5.643 oz Body Mass Index (BMI) 27.2 Physical Exam Narrative Physical Examination: General: Awake, alert, oriented x 3 and cooperative, hard of hearing, seated upright in the ED bed, fatigued appearing. Skin: Normal color, normal turgor, no icterus, no cyanosis except for various staged ecchymoses to the extremities. HEENT: AT/NC, EOMI, PERRLA, MMM, no carotid bruits or JVD noted. Lungs: Diminished, greater bases, more so right posterior mid and base, appropriate effort, no rales, ronchi or wheezing. Heart: Regular rate and rhythm; no gallop, rub audible. Abdomen: Soft, NTTP, ND, normal BS, no HSM. Extremities: No cyanosis, clubbing, or edema. Neurological: Patient awake, alert, oriented as noted, cognitive function intact; pupils equally reactive to light and accommodation, cranial nerves II-XII grossly normal, moving all 4 extremities, no focal deficits, strength moderately to severely globally decreased, worsens whenever he attempts to exert himself even moving in the bed. Psychiatric: Affect appears fatigued, no acute evidence of depressive or anxiety feelings. Results Lab / Micro Data 12/01/22 04:36 12/01/22 04:36 Labs: Laboratory Results - last 24 hr 12/01/22 04:36: WBC 62.2 H*, RBC 4.82, Hgb 14.8, Hct 46.5, MCV 96.5 H, MCH 30.7, MCHC 31.8 L, RDW Std Deviation 55.4 H, RDW Coeff of [place] 15.7 H, Plt Count 103 L, MPV 9.5, Immature Gran % (Auto) 0.300, Neut % (Auto) 10.4 L, Lymph % (Auto) 84.0 H, [place] % (Auto) 4.8, Eos % (Auto) 0.4, Baso % (Auto) 0.1, Absolute Neuts (auto) 6.5, Absolute Lymphs (auto) 52.25 H, Nucleated RBC % 0, Differential Comment SCANNED, Diff Path Review May foll, Reactive Lymphocytes 3+, Smudge Cells 1+ H, D-Dimer Quant (PE/DVT) 0.64 H*, Sodium 140, Potassium 4.0, Chloride 105, Carbon Dioxide 28.0, Anion Gap 7, BUN 22 H, Creatinine 1.43 H, Estim Creat Clear Calc 43.46, Est GFR (MDRD) Af Amer 61, Est GFR (MDRD) Non-Af 50 L, BUN/Creatinine Ratio 15.4, Glucose 202 H, Calcium 9.2, Troponin I High Sens 11, B-Natriuretic Peptide 313.8 H Radiology Impression Chest X-Ray 12/01/22 04:45 IMPRESSION: Degenerative changes, as described above. No demonstrated acute cardiopulmonary process. Electronically Signed: Pamela Jones MD at 5:00 EDT Reading Location ID and State: [facility] / [place] Tel , Service support , Assessment & Plan Assessment/Plan (1) Dyspnea: PLAN: Plan The patient is an 82 y/o M w/ PMHx: Diabetes mellitus type II, CLL, Hx Malignant Melanoma, Psoriasis, BPH, HTN, HLD, CKD stage III unclear subtype who presents to the [facility] ED on 12/01/22 with history of onset shortness of breath starting the Thursday prior progressively worsening, worse with exertion with no history of recent fevers, chills, cough, nausea or emesis and no chest discomfort nor pleuritic chest pain with pulse oximeter at home noted to be 89% at resting however he drops if he ambulates prompting ED evaluation. #1. Dyspnea, worse with exertion, unclear specific etiology, possibly anginal equivalent: We will admit to PCU, maintain on cardiac telemetry, cycle cardiac enzymes be cautious, will obtain CTA of the chest given underlying cancer, request echocardiogram w/ last 09/26/2019 echocardiogram with normal LV, normal LV systolic function, EF 60%, stage I diastolic dysfunction, BNP is mildly elevated thus will pulse dose x 1 with lasix, obtain COVID PCR as well as full respiratory viral panel, procalcitonin requested, if CTPA is not marked appearing would plan follow-up stress testing as his presentation could be consistent with an anginal equivalent, maintain on fall precautions, PT/OT/case management consulted for discharge planning. #2. CLL: CBC upon presentation with WBC 62.2 with significant lymphocytosis managed only medically secondary to process that his went through 2 decades prior, encourage continued outpatient follow-up with oncology. #3. Diabetes mellitus type II: Hold oral home regimen, ADA diet, accu checks w/ ISS. #4. Hypertension: Continue home regimen including metoprolol, lisinopril, triamterene-hydrochlorothiazide, PRN hydralazine. #5. Chronic Kidney Disease Stage III, unclear subtype: Admission BUN/Cr 22/1.43, baseline renal function 1.2-1.3 primarily, repeat BMP in AM. #6. Hyperlipidemia: Not on statin therapy, defer to outpatient. #7. History malignant melanoma: Status post resection, considered in remission. #8. Former tobacco use: Encourage continued tobacco cessation. #9. BPH: Per current list on a regimen, clarifying. #10. DVT prophylaxis: Lovenox. #11. CODE status: Patient SUSANNE is his son who is and living will is currently in place. Discussed CODE status at length including difference between FULL code, DNR-CCA and DNR-CC status. Following discussions about the differences in these status, requested DNR-CCA, no intubation status. Advanced Care Planning Face to Face Time: 16 minutes. Charges/Coding Visit Charges Inpatient E&M: 86405 Init Hosp L3 Procedures Hospitalists Procedures: 79636 Advncd Care Plan 30 Min
--- NOTE | 2022-12-01 06:13 | CT_ITS ---
STUDY: CTA CHEST REASON FOR EXAM: Male, 82 years old with dyspnea. Shortness breath 3 days, history of hypertension, lymphoma, malignant melanoma. TECHNIQUE: CT angiogram of chest was performed with the intravenous administration of 100 ml Isovue-370. Post-processing of the angiographic images was performed, with MIP and MPR reconstructions. Individualized dose optimization techniques were used for this CT. COMPARISON: No comparison CT imaging received. FINDINGS: PULMONARY ARTERIES: No pulmonary arterial filling defects identified. AORTA AND VISUALIZED GREAT VESSELS: Atherosclerosis with no thoracic aortic aneurysm or dissection. Great vessels are patent. HEART AND PERICARDIUM: Normal size heart with coronary arterial calcifications. No significant pericardial effusion. MEDIASTINUM AND BALBIR: Multiple enlarged bilateral mediastinal and hilar lymph nodes present. Reference mediastinal lymph nodes are right upper paratracheal measuring 13 mm short axis diameter and infracarinal nodes measuring 16 mm short axis diameter. Small hiatal hernia. LUNGS, PLEURA AND LARGE AIRWAYS: Hyperexpanded lungs with centrilobular emphysematous changes. There is mild pulmonary interstitial septal thickening and peribronchial thickening compatible with edema. Small bilateral pleural effusions also present. Patchy areas of groundglass opacification present within bilateral upper lobes. Mild bilateral dependent atelectasis. Several scattered bilateral subcentimeter pulmonary nodules. No pneumothorax. BONES: Skeletal degenerative changes with no acute osseous abnormality. CHEST WALL: No chest wall mass or acute findings. VISUALIZED ABDOMEN: Upper abdominal adenopathy with partially imaged enlarged spleen. CT/CTA Chest W/WO Contrast IMPRESSION: 1. Pathologic adenopathy, splenomegaly and pulmonary nodules compatible with clinical history of lymphoma. 2. Pulmonary emphysema with nonspecific patchy bilateral groundglass pulmonary infiltrate. 3. No pulmonary embolus identified. 4. Pulmonary interstitial edema and small bilateral pleural effusions. Electronically Signed: Loki Leos MD at 7:19 EDT ,
--- NOTE | 2022-12-01 06:36 | NURSING ---
pcu obs white dyspnea
[2022-12-01 06:44] LABS: Reflex Troponin-HS? (from REC) Y
[2022-12-01 06:45] LABS: Magnesium 1.7 mg/dL (1.6-2.6); Phosphorus 3.1 mg/dL (2.5-4.9)
--- NOTE | 2022-12-01 08:44 | PN.HOSP_ITS ---
Reason for Visit Reason for Visit: Diagnoses Dyspnea, unspecified (12/01/22) Subjective Subjective Short of breath with activity. Fine at rest. Remote smoking history (quit 40 years ago). Objective Data Objective Data Vital Signs: Vital Signs Temp Pulse Resp BP Pulse Ox O2 Del Method O2 Flow Rate 36.6 C 58 L 18 147/65 H 95 Nasal Cannula 3 12/01/22 06:50 12/01/22 06:50 12/01/22 06:50 12/01/22 06:50 12/01/22 06:50 12/01/22 06:50 12/01/22 06:50 Oxygen Flow Rate (L/min) 3 Oxygen Delivery Method Nasal Cannula Weight: 93.6 kg Body Mass Index (BMI) 27.2 Lab / Micro Data 12/01/22 04:36 12/01/22 04:36 Labs: Laboratory Results - last 24 hr 12/01/22 04:36: WBC 62.2 H*, RBC 4.82, Hgb 14.8, Hct 46.5, MCV 96.5 H, MCH 30.7, MCHC 31.8 L, RDW Std Deviation 55.4 H, RDW Coeff of [place] 15.7 H, Plt Count 103 L, MPV 9.5, Immature Gran % (Auto) 0.300, Neut % (Auto) 10.4 L, Lymph % (Auto) 84.0 H, [place] % (Auto) 4.8, Eos % (Auto) 0.4, Baso % (Auto) 0.1, Absolute Neuts (auto) 6.5, Absolute Lymphs (auto) 52.25 H, Nucleated RBC % 0, Differential Comment SCANNED, Diff Path Review May foll, Reactive Lymphocytes 3+, Smudge Cells 1+ H, D-Dimer Quant (PE/DVT) 0.64 H*, Sodium 140, Potassium 4.0, Chloride 105, Carbon Dioxide 28.0, Anion Gap 7, BUN 22 H, Creatinine 1.43 H, Estim Creat Clear Calc 43.46, Est GFR (MDRD) Af Amer 61, Est GFR (MDRD) Non-Af 50 L, BUN/Creatinine Ratio 15.4, Glucose 202 H, Calcium 9.2, Phosphorus 3.1, Magnesium 1.7, Troponin I High Sens 11, B-Natriuretic Peptide 313.8 H Radiography Diagnostic Testing: Radiology Impression Chest X-Ray 12/01/22 04:45 IMPRESSION: Degenerative changes, as described above. No demonstrated acute cardiopulmonary process. Electronically Signed: Pamela Jones MD at 5:00 EDT , Chest CTA 12/01/22 06:13 IMPRESSION: 1. Pathologic adenopathy, splenomegaly and pulmonary nodules compatible with clinical history of lymphoma. 2. Pulmonary emphysema with nonspecific patchy bilateral groundglass pulmonary infiltrate. 3. No pulmonary embolus identified. 4. Pulmonary interstitial edema and small bilateral pleural effusions. Electronically Signed: Loki Leos MD at 7:19 EDT , Physical Exam Const alert and no apparent distress HEENT head/scalp atraumatic and moist oral mucous membranes Resp normal respiratory effort and no retractions Resp Narrative: diminished BS bilaterally. Cardio regular rate, regular rhythm, S1 normal heart sound and S2 normal heart sound GI normal to inspection, nondistended, normoactive bowel sounds, soft to palpation, non-tender and non-distended Extremity normal to inspection and full ROM Assessment & Plan Assessment/Plan (1) COPD exacerbation: PLAN: Dyspnea, worse with exertion, unclear specific etiology Start methylprednisonolone. Concerning for COPD exacerbation plus pneumonia (bacterial v viral) Start levofloxacin for bacterial pneumonia. Recommended outpatient follow up with pulmonary for COPD eval. Data: * CTA chest: patholoic adenopathy, splenomegaly and pulmonary nodules. Pulmonary emphysema w nonspecific bilateral GG infiltrate. No PE. Pulmonary interstitial edema w small bilteral pleural effusions. * echocardiogram w/ last 09/26/2019 echocardiogram with normal LV, normal LV systolic function, EF 60%, stage I diastolic dysfunction, * obtain COVID PCR as well as full respiratory viral panel, procalcitonin requested, * Check strep and legionella antigens. Check sputum cultures. (2) Pneumonia: PLAN: Bacterial v viral as above. PEP therapy PLAN: Plan Chronic conditions: * CLL: CBC upon presentation with WBC 62.2 with significant lymphocytosis managed only medically secondary to process that his went through 2 decades prior, encourage continued outpatient follow-up with oncology. * Diabetes mellitus type II: Hold oral home regimen, ADA diet, accu checks w/ ISS. * Hypertension: Continue home regimen including metoprolol, lisinopril, triamterene-hydrochlorothiazide, PRN hydralazine. * Chronic Kidney Disease Stage III, unclear subtype: Admission BUN/Cr 22/1.43, baseline renal function 1.2-1.3 primarily, repeat BMP in AM. * Hyperlipidemia: Not on statin therapy, defer to outpatient. * History malignant melanoma: Status post resection, considered in remission. * Former tobacco use: Encourage continued tobacco cessation. * BPH: Per current list on a regimen, clarifying. DVT prophylaxis: Lovenox. CODE status: DNR-CCA, no intubation status. 12/01: I personally reviewed the CT images with pt and his family at bedside. I told him given the diffuse nature of the infiltrates, I would be concerned for a viral pneumonia, including COVID. The son became very upset saying I don't want to hear that COVID shit, and that if he has COVID he would need to be notified because the patient will not have remdesivir. He alluded to other family members who (presumably of COVID) before storming out of the room. Charges/Coding Visit Charges Inpatient E&M: 09268 Subs Hosp L3
[2022-12-01 09:11] LABS: Procalcitonin 0.07 ng/mL (0.00-0.09)
--- NOTE | 2022-12-01 09:11 | ECHOCS_ITS ---
Reason For Study: Dyspnea/SOB Procedure This was a 2D Doppler, Color Flow transthoracic echocardiogram. The study was technically difficult. Limited views were obtained. Contrast injection was performed. Exam performed portable in patient room. Left Ventricle Normal LV size. Left ventricular systolic function is normal. The estimated ejection fraction is 60 %. Stage 2 diastolic dysfunction. No regional wall motion abnormalities noted. Right Ventricle Normal RV size. Normal systolic function. Atria Normal left atrium. Normal right atrium. Mitral Valve Normal mitral valve. Tricuspid Valve Normal tricuspid valve. Aortic Valve Trisinus/trileaflet aortic valve. Pulmonic Valve The pulmonic valve is not well visualized. Great Vessels Normal aortic root. The pulmonary artery is normal size. Normal inferior vena cava. Pericardium/Pleural No pericardial effusion. Medication Diluted definity 2ml given slow IV push to enhance endocardial definition. MMode/2D Measurements & Calculations LVIDd: 3.5 cm IVSd: 0.76 cm LAV(MOD-sp4): 48.8 ml LVIDs: 2.5 cm LVPWd: 1.1 cm FS: 28.7 % LA A4 area: 17.2 cm2 RA A4 area: 16.2 cm2 Time Measurements MV dec time: 0.27 sec Doppler Measurements & Calculations MV E max haja: 76.3 cm/sec Lat Peak E' Haja: 8.9 cm/sec Med Peak E' Haja: 8.9 cm/sec MV A max haja: 53.6 cm/sec E/E' lat: 8.6 E/E' med: 8.5 MV E/A: 1.4 Ao V2 max: 80.1 cm/sec LV V1 max: 61.9 cm/sec PA V2 max: 102.0 cm/sec Ao max P.6 mmHg LV V1 max P.5 mmHg ECHO/Echo Complete W/ Contrast Interpretation Summary Normal LV size. Left ventricular systolic function is normal. The estimated ejection fraction is 60 %. Stage 2 diastolic dysfunction. Contrast injection was performed. Ordering Physician: Yvonne Mittal Performed By: Osvaldo Desouza RCS
[2022-12-01 09:25] LABS: Troponin-I HS 11 pg/mL (3.0-78.0)
[2022-12-01] MEDS: Insulin Lispro 100 UNIT/ML INSULN.PEN SC ×3 (11:10→21:21)
[2022-12-01] MEDS: Furosemide 20 MG/2 ML VIAL IV (11:11)
[2022-12-01] MEDS: Enoxaparin 40 MG/0.4 ML Syringe SC (11:11)
[2022-12-01] MEDS: Metoprolol(XL)Succ 100 MG Tablet PO (11:12)
[2022-12-01] MEDS: Triamterene 37.5MG/Hctz 25MG Capsule 1 CAP PO (11:12)
[2022-12-01] MEDS: Ensure Plus High Protein 120 ML LIQUID PO (11:13)
[2022-12-01] MEDS: 0.9% Saline Lock 10 ML Syringe IV ×2 (11:19→21:59)
[2022-12-01 11:50] LABS: Troponin-I HS 12 pg/mL (3.0-78.0)
[2022-12-01] MEDS: Ipratropium/Albuterol Sulfate 3 ML AMPUL.NEB INHALATION ×2 (13:45→21:30)
[2022-12-01 15:31] LABS: Bedside Glucose 162 mg/dL (74-106)
[2022-12-01 17:49] LABS: Bedside Glucose 197 mg/dL (74-106)
[2022-12-01] MEDS: Lisinopril 10 MG Tablet PO (21:41)
[2022-12-01 21:45] LABS: Bedside Glucose 245 mg/dL (74-106)
[2022-12-02] VITALS (9 sets, daily range): BP systolic 116–140; BP diastolic 57–82; PULSE 65–69; RESP 15–18; TEMP 36.4–36.7; O2SAT 88–98; BMI 27.3
[2022-12-02 05:12] LABS: Absolute Lymphocyte Count 55.18 X10^3/uL (0.83-4.51); Basophil# 0.06 X10^3/uL; Basophil% 0.1 % (0-1); Eosinophil# 0.09 X10^3/uL; Eosinophils% 0.1 % (0-5); Hematocrit 41.5 % (40-54); Hemoglobin 13.5 g/dL (13.0-16.5); Lymphocyte # 55.18 X10^3/ul (0.83-4.51); Lymphocyte % 81.4 % (19-41); Mean Corp Hgb Conc 32.5 g/dL (32-36); Mean Corpuscular Hgb 30.9 pg (27.0-32.0); Mean Platelet Vol. 9.5 fl (6.2-12.0); Monocyte# 3.09 X10^3/uL; Monocyte% 4.6 % (0-10); NRBC Flagged by Analyzer 0 % (0-5); Neutrophil # 9.01 X10^3/uL (2.7-7.7); Neutrophil % 13.3 % (47-70); POSITIVE COUNT YES; POSITIVE DIFFERENTIAL YES; POSITIVE MORPHOLOGY YES; Platelet Count 101 K/mm3 (150-450); RBC Distribution Width CV 15.4 % (11.6-14.6); RBC Distribution Width SD 53.3 fl (35.1-43.9); Red Blood Count 4.37 M/mm3 (4.6-6.2)
[2022-12-02 05:16] LABS: Differential Indicated SCAN CRITERIA MET
[2022-12-02 05:17] LABS: White Blood Count 67.8 K/mm3 (4.4-11.0)
[2022-12-02 05:46] LABS: ALB/GLOB Ratio 1.1 RATIO (0.9-2.4); AST(SGOT) 23 U/L (15-37); Alanine Aminotransfer ALT/SGPT 24 U/L (16-61); Albumin, Serum 3.4 g/dL (3.2-5.0); Alkaline Phosphatase 80 U/L (45-117); Anion Gap 4 (5-15); BUN 25 mg/dL (7-18); BUN/Creat Ratio 18.1 RATIO (10-20); Calcium,Total 8.9 mg/dL (8.5-10.1); Chloride 105 mmol/L (98-107); Creatinine, Serum 1.38 mg/dL (0.70-1.30); EST Glomerular Filtration Rate 52 mL/min (>60); Est Glom Filt Rate - Afr Amer 63 mL/min (>60); Estimated Creatinine Clearance 45.03 ml/min; Globulin 3.2 g/dL (2.2-4.2); Glucose 208 mg/dL (74-106); Potassium 3.9 mmol/L (3.5-5.1); Protein, Total 6.6 g/dL (6.4-8.2); Sodium Level 138 mmol/L (136-145)
[2022-12-02 06:03] LABS: Atypical Lymphocyte 1+ %; Differential Comment SCANNED
[2022-12-02] MEDS: Insulin Lispro 100 UNIT/ML INSULN.PEN SC ×3 (06:36→16:00)
[2022-12-02] MEDS: Methylprednisolone Sod Succ 40 MG/ML VIAL IV ×2 (07:00→15:44)
[2022-12-02] MEDS: 0.9% Saline Lock 10 ML Syringe IV (07:00)
[2022-12-02 07:03] LABS: Bedside Glucose 201 mg/dL (74-106)
[2022-12-02] MEDS: Ipratropium/Albuterol Sulfate 3 ML AMPUL.NEB INHALATION ×2 (07:38→13:29)
--- NOTE | 2022-12-02 08:15 | PN.HOSP_ITS ---
Reason for Visit Reason for Visit: Diagnoses Pneumonia, unspecified organism (12/01/22) Chronic obstructive pulmonary disease with (acute) exacerbation (12/01/22) Dyspnea, unspecified (12/01/22) Subjective Subjective Breathing well. Objective Data Objective Data Vital Signs: Vital Signs Temp Pulse Resp BP Pulse Ox O2 Del Method O2 Flow Rate 36.7 C 66 15 116/77 92 Nasal Cannula 4 12/02/22 03:07 12/02/22 03:07 12/02/22 03:07 12/02/22 03:07 12/02/22 03:07 12/02/22 03:15 12/02/22 03:15 Oxygen Flow Rate (L/min) 4 Oxygen Delivery Method Nasal Cannula Weight: 93.9 kg Body Mass Index (BMI) 27.3 Intake & Output: Intake and Output for Last 24 Hours 11/30/22 12/01/22 12/02/22 23:59 23:59 23:59 Intake Total 1230 / 1230 220 / 220 Output Total 1350 / 1500 475 / 475 Balance -120 / -270 -255 / -255 Lab / Micro Data 12/02/22 04:46 12/02/22 04:46 Labs: Laboratory Results - last 24 hr 12/01/22 06:19: Procalcitonin 0.07 12/01/22 08:25: Troponin I High Sens 11 12/01/22 11:05: Troponin I High Sens 12/01/22 11:09: POC Glucose 162 H 12/01/22 17:09: POC Glucose 197 H 12/01/22 21:18: POC Glucose 245 H 12/02/22 04:46: WBC 67.8 H*, RBC 4.37 L, Hgb 13.5, Hct 41.5, MCV 95.0 H, MCH 30.9, MCHC 32.5, RDW Std Deviation 53.3 H, RDW Coeff of [place] 15.4 H, Plt Count 101 L, MPV 9.5, Immature Gran % (Auto) 0.500, Neut % (Auto) 13.3 L, Lymph % (Auto) 81.4 H, [place] % (Auto) 4.6, Eos % (Auto) 0.1, Baso % (Auto) 0.1, Absolute Neuts (auto) 9.0 H, Absolute Lymphs (auto) 55.18 H, Nucleated RBC % 0, Differential Comment SCANNED, Diff Path Review May foll, Atypical Lymphocytes 1+, Sodium 138, Potassium 3.9, Chloride 105, Carbon Dioxide 29.0, Anion Gap 4 L, BUN 25 H, Creatinine 1.38 H, Estim Creat Clear Calc 45.03, Est GFR (MDRD) Af Amer 63, Est GFR (MDRD) Non-Af 52 L, BUN/Creatinine Ratio 18.1, Glucose 208 H, Calcium 8.9, Total Bilirubin 1.40 H, AST 23, ALT 24, Alkaline Phosphatase 80, Total Protein 6.6, Albumin 3.4, Globulin 3.2, Albumin/Globulin Ratio 1.1 12/02/22 06:33: POC Glucose 201 H Micro: Microbiology 12/01/22 13:32 Mucosa - Nasopharyngeal Coronavirus COVID-19 PCR - Final 12/01/22 11:17 Mucosa - Nose Respiratory Panel (PCR) - Final Radiography Diagnostic Testing: Radiology Impression Echocardiogram 12/01/22 09:11 Interpretation Summary Normal LV size. Left ventricular systolic function is normal. The estimated ejection fraction is 60 %. Stage 2 diastolic dysfunction. Contrast injection was performed. Ordering Physician: Yvonne Mittal Performed By: Osvaldo Desouza RCS Physical Exam Const alert and no apparent distress Resp normal respiratory effort and no retractions Resp Narrative: diminished BS bilaterally. Cardio regular rate, regular rhythm, S1 normal heart sound and S2 normal heart sound GI normal to inspection, nondistended, normoactive bowel sounds, soft to palpation, non-tender and non-distended Psych affect normal Assessment & Plan Assessment/Plan (1) COPD exacerbation: PLAN: Start methylprednisolone. Concerning for COPD exacerbation plus pneumonia (bacterial v viral) levofloxacin for bacterial pneumonia. Discharge instructions: * DC home with oxygen. Patient will require 2l/m oxygen with rest and activity. * Prednisone burst * 5 more days of levofloxacin * albuterol I * Recommended outpatient follow up with pulmonary for COPD eval. Data: * CTA chest: patholoic adenopathy, splenomegaly and pulmonary nodules. Pulmonary emphysema w nonspecific bilateral GG infiltrate. No PE. Pulmonary interstitial edema w small bilteral pleural effusions. * echocardiogram w/ last 09/26/2019 echocardiogram with normal LV, normal LV systolic function, EF 60%, stage I diastolic dysfunction, * COVID 19, resp panel negative * Strep and legionella antigens. Check sputum cultures. (2) Pneumonia: QUALIFIERS: Laterality: bilateral Lung location: unspecified part of lung Pneumonia type: due to unspecified organism Qualified Code(s): J18.9 - Pneumonia, unspecified organism PLAN: Bacterial v viral abx as above. PEP therapy PLAN: Plan Chronic conditions: * CLL: CBC upon presentation with WBC 62.2 with significant lymphocytosis managed only medically secondary to process that his went through 2 dec ades prior, encourage continued outpatient follow-up with oncology. * Diabetes mellitus type II: Hold oral home regimen, ADA diet, accu checks w/ ISS. * Hypertension: Continue home regimen including metoprolol, lisinopril, triamterene-hydrochlorothiazide, PRN hydralazine. * Chronic Kidney Disease Stage III, unclear subtype: Admission BUN/Cr 22/1.43, baseline renal function 1.2-1.3 primarily, repeat BMP in AM. * Hyperlipidemia: Not on statin therapy, defer to outpatient. * History malignant melanoma: Status post resection, considered in remission. * Former tobacco use: Encourage continued tobacco cessation. * BPH: Per current list on a regimen, clarifying. DVT prophylaxis: Lovenox. CODE status: DNR-CCA, no intubation status. 12/01: I personally reviewed the CT images with pt and his family at bedside. I told him given the diffuse nature of the infiltrates, I would be concerned for a viral pneumonia, including COVID. The son became very upset saying I don't want to hear that COVID shit, and that if he has COVID he would need to be notified because the patient will not have remdesivir. He alluded to other family members who (presumably of COVID) before storming out of the room. 12/02: patient feeling well. Apologized for his son from yesterday.
[2022-12-02] MEDS: Metoprolol(XL)Succ 100 MG Tablet PO (09:14)
[2022-12-02] MEDS: Triamterene 37.5MG/Hctz 25MG Capsule 1 CAP PO (09:14)
[2022-12-02] MEDS: Enoxaparin 40 MG/0.4 ML Syringe SC (09:15)
[2022-12-02] MEDS: Ensure Plus High Protein 120 ML LIQUID PO ×3 (09:39→16:02)
[2022-12-02] MEDS: levoFLOXacin IV 750 MG/150 ML BAG 100 MG IV (09:52)
--- NOTE | 2022-12-02 12:34 | CASEMGMT ---
?Met with patient to complete SHEETS form. SHEETS form explained to patient who voiced understanding and signed form. Original form placed in pt?s chart and copy provided to patient. Elida Montague, Discharge Planning Asst.
[2022-12-02 12:38] LABS: Bedside Glucose 280 mg/dL (74-106)
--- NOTE | 2022-12-02 15:15 | DS.PCM_ITS ---
Providers Date of Admission: 12/01/22 Primary Care Physician: Dr. Armando Ardon MD Reason For Visit: DYSPNEA Diagnosis Discharge Diagnosis (1) COPD exacerbation: Status: Chronic Code(s): J44.1 - Chronic obstructive pulmonary disease with (acute) exacerbation Plan: Start methylprednisolone. Concerning for COPD exacerbation plus pneumonia (bacterial v viral) levofloxacin for bacterial pneumonia. Discharge instructions: * DC home with oxygen. Patient will require 2l/m oxygen with rest and activity. * Prednisone burst * 5 more days of levofloxacin * albuterol MDI * Recommended outpatient follow up with pulmonary for COPD eval. Data: * CTA chest: patholoic adenopathy, splenomegaly and pulmonary nodules. Pulmonary emphysema w nonspecific bilateral GG infiltrate. No PE. Pulmonary interstitial edema w small bilteral pleural effusions. * echocardiogram w/ last 09/26/2019 echocardiogram with normal LV, normal LV systolic function, EF 60%, stage I diastolic dysfunction, * COVID 19, resp panel negative * Strep and legionella antigens. Check sputum cultures. (2) Pneumonia: Status: Acute Code(s): J18.9 - Pneumonia, unspecified organism Qualifiers: Pneumonia type: due to unspecified organism Laterality: bilateral Lung location: unspecified part of lung Qualified Code(s): J18.9 - Pneumonia, unspecified organism Plan: Bacterial v viral abx as above. 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 * Diabetes mellitus type II: Hold oral home regimen, ADA diet, accu checks w/ ISS. * Hypertension: Continue home regimen including metoprolol, lisinopril, triamterene-hydrochlorothiazide, PRN hydralazine. * Chronic Kidney Disease Stage III, unclear subtype: Admission BUN/Cr 22/1.43, baseline renal function 1.2-1.3 primarily, repeat BMP in AM. * Hyperlipidemia: Not on statin therapy, defer to outpatient. * History malignant melanoma: Status post resection, considered in remission. * Former tobacco use: Encourage continued tobacco cessation. * BPH: Per current list on a regimen, clarifying. DVT prophylaxis: Lovenox. CODE status: DNR-CCA, no intubation status. 12/01: I personally reviewed the CT images with pt and his family at bedside. I told him given the diffuse nature of the infiltrates, I would be concerned for a viral pneumonia, including COVID. The son became very upset saying I don't want to hear that COVID shit, and that if he has COVID he would need to be notified because the patient will not have remdesivir. He alluded to other family members who (presumably of COVID) before storming out of the room. 12/02: patient feeling well. Apologized for his son from yesterday. Medications at Discharge Home Medications metformin 1,000 mg tablet 1,000 mg PO BID 01/20/13 triamterene 37.5 mg-hydrochlorothiazide 25 mg tablet 1 tab PO DAILY 01/20/13 lisinopril 10 mg tablet 10 mg PO QPM 10/05/19 metoprolol succinate 100 mg tablet,extended release 24 hr See Rx Instructions .Route .COMPLEX #90 tabs 08/06/22 albuterol sulfate 90 mcg/actuation aerosol inhaler 2 puff inhalation Q6H PRN shortness of breath or wheezing #8.5 grams 12/02/22 levofloxacin 750 mg tablet 750 mg PO Q24H #5 tabs 12/02/22 prednisone 20 mg tablet 40 mg (2 x 20 mg) PO DAILY 5 days #10 tabs 12/02/22 Hospital Course Operations None Procedures 2-D Echocardiogram Summary of Care Provided Minutes Spent on Discharge: 32 Hospital Course: Patient presents with shortness of breath and hypoxia. Is felt that patient developed the symptoms due to a COPD exacerbation as well as underlying pneumonia. For the pneumonia, patient was checked for viral etiologies including COVID-19 that was negative. Patient did have bilateral patchy infiltrates the patient was treated with levofloxacin. Patient will continue with levofloxacin complete 7-day course of antibiotics. Patient has never been diagnosed with COPD and does have a remote history of smoking. Patient does have emphysematous changes on my review as well as the radiologist. I did review this with the patient and his family. I have recommended the patient follow-up with pulmonology for further evaluation including pulmonary function test. Patient will be on a 5-day course of prednisone and will have an albuterol metered-dose inhaler to help with breakthrough episodes. Patient is ambulatory in the home and community and requires oxygen with portability. Weight / BMI Weight Weight: 93.9 kg Body Mass Index (BMI) 27.3 ABG / Lab / Microbiology Data 12/02/22 04:46 12/02/22 04:46 Laboratory: Laboratory Results - last 24 hr 12/01/22 11:09: POC Glucose 162 H 12/01/22 17:09: POC Glucose 197 H 12/01/22 21:18: POC Glucose 245 H 12/02/22 04:46: WBC 67.8 H*, RBC 4.37 L, Hgb 13.5, Hct 41.5, MCV 95.0 H, MCH 30.9, MCHC 32.5, RDW Std Deviation 53.3 H, RDW Coeff of [place] 15.4 H, Plt Count 101 L, MPV 9.5, Immature Gran % (Auto) 0.500, Neut % (Auto) 13.3 L, Lymph % (Auto) 81.4 H, [place] % (Auto) 4.6, Eos % (Auto) 0.1, Baso % (Auto) 0.1, Absolute Neuts (auto) 9.0 H, Absolute Lymphs (auto) 55.18 H, Nucleated RBC % 0, Differential Comment SCANNED, Diff Path Review May foll, Atypical Lymphocytes 1+, Sodium 138, Potassium 3.9, Chloride 105, Carbon Dioxide 29.0, Anion Gap 4 L, BUN 25 H, Creatinine 1.38 H, Estim Creat Clear Calc 45.03, Est GFR (MDRD) Af Amer 63, Est GFR (MDRD) Non-Af 52 L, BUN/Creatinine Ratio 18.1, Glucose 208 H, Calcium 8.9, Total Bilirubin 1.40 H, AST 23, ALT 24, Alkaline Phosphatase 80, Total Protein 6.6, Albumin 3.4, Globulin 3.2, Albumin/Globulin Ratio 1.1 12/02/22 06:33: POC Glucose 201 H 12/02/22 11:58: POC Glucose 280 H Microbiology: Microbiology 12/02/22 10:50 Urine, Clean Catch Legionella Antigen - Final 12/01/22 13:32 Mucosa - Nasopharyngeal Coronavirus COVID-19 PCR - Final 12/01/22 11:17 Mucosa - Nose Respiratory Panel (PCR) - Final D/C Instructions Discharge Diet: 2000 Calorie Control Diet Call your doctor if you observe: Fever of 101 or Higher and Shortness of breath Meaningful Use Info Meaningful Use Diagnoses (Choose all that apply): None applicable Discharge Plan Admission Admit Date/Time: 12/01/22 06:09 Primary Reason for Your Visit: COPD exacerbation. Pneumonia. Attending Provider: Surinder Brock Primary Care Provider: Armando Ardon Instructions Additional Instructions / Restrictions: I feel you had respiratory difficulties due to an exacerbation of COPD (aka, emphysema) and pneumonia. For the COPD he will be on prednisone, which is a steroid, for 5 days and you will have metered-dose inhaler of albuterol to help you if you have respiratory difficulties. I strongly recommend that you follow- up with pulmonology for further evaluation and further testing for your COPD when you are feeling better. For the pneumonia, you will be on antibiotics for additional 5 days complete a 7-day course of antibiotics. Please complete that. We did evaluate you for viral sources of pneumonia including COVID-19 and influenza. The viral sources were all negative. Discharge Orders/Prescriptions Prescriptions: New prednisone 20 mg tablet 40 mg PO DAILY 5 Days Qty: 10 0RF levofloxacin 750 mg tablet 750 mg PO Q24H Qty: 5 0RF Rx Instructions: start 12/03/2022 albuterol sulfate 90 mcg/actuation HFA aerosol inhaler 2 puff inhalation Q6H PRN (Reason: shortness of breath or wheezing) Qty: 8.5 0RF Continued triamterene-hydrochlorothiazid 1 EACH tablet 1 tab PO DAILY lisinopril 10 mg tablet 10 mg PO QPM metoprolol succinate 100 mg tablet extended release 24 hr See Rx Instructions .ROUTE .COMPLEX Qty: 90 3RF Dose Instruction: TAKE 1 TABLET DAILY Rx Instructions: TAKE 1 TABLET DAILY Held metformin 1,000 MG tablet 1,000 mg PO BID Hold Instructions: Resume on 12/05/22. Referrals / Follow Up: [facility] [Provider Group] - Within 1 Month Armando Ardon MD [Primary Care Provider] - Within 2 Weeks Disposition Disposition (needs filled in before D/C Order can be placed): Home, Self Care Charges/Coding Visit Charges Inpatient E&M: 44356 Disch Hosp >30min
--- NOTE | 2022-12-02 16:00 | CASEMGMT ---
NETTE THOMAS updated that patient will need home oxygen at discharge. Script received. NETTE THOMAS in to discuss home oxygen with patient. Patient states he prefers [employer]. Patient denies further needs at discharge. NETTE THOMAS sent referral to [employer] via [facility] and arranged for portable tank to be delivered to patients room.
[2022-12-02 16:21] LABS: Bedside Glucose 179 mg/dL (74-106)
[2022-12-03 09:39] LABS: Pathologist Review Reviewed
[2022-12-03 09:39] LABS: Pathologist Review Reviewed
== END 2022-12-02 15:23 | disposition home or self-care (01) ==
LOC: ED 06:44 → PCU 06:46
PROVIDERS: Admitting Provider Family Medicine; Emergency Provider Student in an Organized Health Care Education/Training Program; PCP Family Medicine
DX: J18.9 Pneumonia, unspecified organism (principal); C91.10 Chronic lymphocytic leukemia of B-cell type not having achieved remission; J44.1 Chronic obstructive pulmonary disease with (acute) exacerbation; E11.22 Type 2 diabetes mellitus with diabetic chronic kidney disease; N18.30 Chronic kidney disease, stage 3 unspecified; I12.9 Hypertensive chronic kidney disease with stage 1 through stage 4 chronic kidney disease, or unspecified chronic kidney disease; Z87.891 Personal history of nicotine dependence; R53.1 Weakness; Z79.84 Long term (current) use of oral hypoglycemic drugs; Z20.822 Contact with and (suspected) exposure to COVID-19; R53.81 Other malaise; E78.5 Hyperlipidemia, unspecified; Z79.899 Other long term (current) drug therapy; N40.0 Benign prostatic hyperplasia without lower urinary tract symptoms; Z66 Do not resuscitate; R06.02 Shortness of breath
CPT/HCPCS: 36415; 71045; 71275; 80048; 80053; 82962; 83735; 83880; 84100; 84145; 84484; 85025; 85379; 87449; 87633; 87635; 93005; 93306; 94640; 94668; 96365; 96366; 96372; 96375; 96376; 97161; 97165; 99221; 99285; Q9957; Q9967; A4216; C8929; G0378; J1940

== ENCOUNTER → 2023-02-05 | Outpatient (CLI) | payer MEDICARE, SELFPAY ==
--- NOTE | 2023-02-06 08:18 | PFT ---
INTRODUCTION: The patient is an 82-year-old male who presents for pulmonary function studies secondary to a diagnosis of COPD. Respiratory therapy reported good patient effort. Bronchodilators were used during testing. INTERPRETATION: Forced expiration spirometry demonstrates the presence of a moderate large airways obstructive ventilatory defect. There was a significant response to aerosolized bronchodilators. Spirograms are of good quality but do not plateau indicating slow emptying of the lungs. Body plethysmography was performed and revealed an elevated RV to 133% of predicted, indicative of underlying air trapping. Diffusing capacity by single breath CO was reduced to 55% of predicted. IMPRESSION: Partially reversible moderate large airways obstructive ventilatory defect with associated air trapping and symmetric reduction in diffusing capacity.
== END | disposition home or self-care (01) ==
LOC: PSN 09:37
PROVIDERS: PCP Family Medicine; Visit Provider Internal Medicine Critical Care Medicine
DX: J44.9 Chronic obstructive pulmonary disease, unspecified (principal)
CPT/HCPCS: 94060; 94726; 94729

== ENCOUNTER → 2023-02-10 | Outpatient (CLI) | payer MEDICARE, SELFPAY ==
[2023-02-10 11:25] VITALS: PULSE 60; PULSE 61; PULSE 67; PULSE 69; PULSE 70; PULSE 72; PULSE 74; O2SAT 90; O2SAT 91; O2SAT 96; O2SAT 97
--- NOTE | 2023-02-10 14:29 | PCM.PSN.6M ---
PSN 6 Minute Walk Test 6 Minute Walk Test 6 Minute Walk Test: 6 Minute Walk Test PSN:6-Minute Walk Test Start: 02/10/23 11:25 Freq: Status: Active Protocol: [id number] Document 02/10/23 11:25 [facility] (Rec: 02/10/23 11:29 [facility] Desktop) 6 Minute Walk Test Date Performed 02/10/23 Time Performed 11:15 Height 6 ft 1 in Weight: 90.718 kg Weight in Pounds 200.[address]: Dr Barragan n Assistive device used: None Pre-test Oxygen Delivery Method Bi-pap Pulse Ox 96 Pulse Rate (60-100) 60 Dyspnea [place] Scale (0-10) 0 Exertion [place] Scale (6-20) 6 1st minute Oxygen Delivery Method Room Air Pulse Ox 97 Pulse Rate (60-100) 67 2nd minute Oxygen Delivery Method Room Air Pulse Ox 90 Pulse Rate (60-100) 69 3rd minute Oxygen Delivery Method Room Air Pulse Ox 91 Pulse Rate (60-100) 70 4th minute Oxygen Delivery Method Room Air Pulse Ox 91 Pulse Rate (60-100) 74 5th minute Oxygen Delivery Method Room Air Pulse Ox 90 Pulse Rate (60-100) 72 6th minute Oxygen Delivery Method Room Air Pulse Ox 90 Pulse Rate (60-100) 61 Dyspnea [place] Scale (0-10) 0.5 Exertion [place] Scale (6-20) 13 Post-test Oxygen Delivery Method Room Air Pulse Ox 96 Pulse Rate (60-100) 61 Full Laps Walked 14 Partial Lap, Number of Tiles Walked 0 Total Distance Walked (ft) 826 Interpretation Interpretation: Patient was able to ambulate 826 feet over the course of 6 minutes on room air with no assistive devices or breaks. The patient did experience significant desaturation as low as 90% with ambulation, but no tachycardia was noted. These findings are consistent with a respiratory limitation exercise tolerance. Recommendations Recommendations: No supplemental oxygen is indicated at this time. However, patient will need to be followed closely given level of desaturation.
== END | disposition home or self-care (01) ==
PROVIDERS: PCP Family Medicine; Referring Provider Internal Medicine Critical Care Medicine; Visit Provider Internal Medicine Critical Care Medicine
DX: J44.9 Chronic obstructive pulmonary disease, unspecified (principal)
CPT/HCPCS: 94618

== ENCOUNTER → 2023-06-15 | Outpatient (CLI) | payer MEDICARE, SELFPAY ==
--- NOTE | 2023-06-15 07:43 | CT_ITS ---
INDICATION: new nodule EXAMINATION: CT CHEST WITHOUT CONTRAST - CT Chest W/O Contrast Injection TECHNIQUE: Helically acquired images were obtained of the chest. A radiation dose optimization technique was used for this scan. IV Contrast dosage and agent: None. COMPARISON: None. FINDINGS: LUNGS, PLEURA AND LARGE AIRWAYS: Mild emphysema. 1.5 cm spiculated noncalcified nodule in the left upper lobe lungs on image 32 worrisome for bronchogenic carcinoma and PET/CT or tissue sampling is recommended. 4 mm noncalcified nodule posterior left upper lobe lungs adjacent to major fissure consistent with a. Fissural lymph node. Bullae or pneumatoceles in the right upper lobe. No pleural effusion or thickening. No pneumothorax. THYROID: No thyroid lesions. HEART AND PERICARDIUM: Heart size is normal. No pericardial effusion. CORONARY ARTERIES: Coronary artery calcification is seen. VESSELS: Thoracic aorta is not dilated. MEDIASTINUM AND BALBIR: Mediastinal lymphadenopathy with the largest discrete node a pretracheal lymph node measuring 1.2 x 2.0 cm in cervical aorticopulmonary window lymph nodes collectively measuring 5.0 x 5.5 cm. Esophagus is unremarkable. Small hiatal hernia. UPPER ABDOMEN: No acute pathology. BONES: No suspicious lytic or blastic abnormality. CT/Chest without Contrast IMPRESSION: 1. Mild emphysema with a 1.5 cm spiculated left upper lobe nodule worrisome for bronchogenic carcinoma correlation with PET CT scan and/or tissue sampling is recommended. 2. Mediastinal lymphadenopathy worrisome for metastatic lymphadenopathy. 3. Small hiatal hernia. Electronically Signed: Dangelo Ralph MD at 22:11 EDT ,
== END | disposition home or self-care (01) ==
LOC: CT 07:42
PROVIDERS: PCP Family Medicine; Referring Provider Nurse Practitioner Acute Care; Visit Provider Nurse Practitioner Acute Care
DX: R91.1 Solitary pulmonary nodule (principal)
CPT/HCPCS: 71250

== ENCOUNTER 2024-03-21 10:49 | Emergency (ER) | payer MEDICARE, SELFPAY ==
[2024-03-21] VITALS (7 sets, daily range): BP systolic 94–108; BP diastolic 47–87; PULSE 56–82; RESP 14–18; TEMP 36.1; O2SAT 92–97; BMI 25.2
--- NOTE | 2024-03-21 11:36 | EKG12_ITS ---
Test Reason : SOB Blood Pressure : */* mmHG Vent. Rate : 67 BPM Atrial Rate : 67 BPM P-R Int : 168 ms QRS Dur : 84 ms QT Int : 418 ms P-R-T Axes : 54 51 42 degrees QTcB Int : 441 ms Sinus rhythm with Premature supraventricular complexes Low voltage QRS Borderline ECG Confirmed by BAILEY ALVARES MD ([id number]), school photograph editor JASON WEAVER ([id number]) on 03/22/2024 7:58:25 AM Referred By: Confirmed By: BAILEY ALVARES MD
--- NOTE | 2024-03-21 11:36 | EDS_ITS ---
HPI History of Present Illness Chief Complaint: Shortness of Breath Narrative Narrative: 83-year-old male past medical history of CLL, in remission and states his white count is coming down, presents with his son and [id number] because of increasing dyspnea on exertion that he has had for the last few weeks. He is usually fine whenever he is at a standstill, but when he walks, he becomes very short of breath. He states he went down 12 stairs today to empty the litter box, and he was very winded and short of breath. He denies any fevers or chills, no cough, no leg swelling, no chest pain. He does relate history that he was admitted to the hospital previously and was found to have a little bit of fluid on his lungs, but never had thoracentesis. While he denies having history of CHF or COPD, he quit smoking in the 1970s, approximately 50 years ago. [facility] Medical History CLL (chronic lymphocytic leukemia) Chronic renal insufficiency Psoriasis Non-alcoholic fatty liver disease Malignant melanoma Essential (primary) hypertension Hyperlipidemia Benign nodular prostatic hyperplasia without lower urinary tract symptoms Sciatic nerve disease Type 2 diabetes mellitus Osteoarthritis Home Medications ?Medication ?Instructions ?Recorded ?Last Taken ?Type metformin 1,000 mg tablet 1,000 mg PO BID 01/20/13 11/30/22 History triamterene 37.5 1 tab PO DAILY 01/20/13 11/30/22 History mg-hydrochlorothiazide 25 mg tablet lisinopril 10 mg tablet 10 mg PO QPM 10/05/19 11/30/22 History tamsulosin 0.4 mg capsule (Flomax) 0.4 mg PO DAILY 03/05/23 Unknown History albuterol sulfate 90 mcg/actuation 2 puff inhalation Q4H PRN PRN 03/21/24 Unknown Rx aerosol inhaler (Ventolin HFA) Wheezing #1 ea metoprolol succinate 100 mg 100 mg PO DAILY 03/21/24 Unknown History tablet,extended release 24 hr Allergy/AdvReac Type Severity Reaction Status Date / Time Penicillins Allergy Hives Verified 03/21/24 10:53 Family History Father Heart disease Thoracic aortic aneurysm (TAA) Mother No problems noted. Surgical History History of bilateral cataract extraction History of excision of lesion Social History household members: none Smoking Status: Former smoker quit date: 03/23/75 pack-years: 10 how long ago did patient quit smokin alcohol intake: current alcohol intake frequency: a few times a week substance use type: does not use caffeine: Yes Type: coffee Number of servings: 1 ROS ROS ED ROS Narrative Review of systems positive for dyspnea on exertion. No fevers or chills, no cough, no shortness of breath at rest. No chest pain. No leg swelling. EXAM Physical Exam Narrative Exam Narrative: Afebrile. Vital signs noted. Nontoxic-appearing. Awake, alert, pleasant. Hard of hearing. Cardiovascular examination reveals a regular rate and rhythm. Respiratory examination shows no distress, no tachypnea. Decreased breath sounds bilateral bases. Abdomen soft and nontender with positive bowel sounds. Lungs are clear to auscultation bilaterally otherwise without wheezing or rhonchi. Neurological examination shows to be nonfocal and, and nonlateralizing. Const Vital Signs: 03/21/24 10:51 03/21/24 11:28 03/21/24 11:36 Temperature 96.9 F L Temperature Source Temporal Pulse Rate 66 Respiratory Rate 18 Respiratory Effort Normal Respiratory Depth Normal Respiratory Pattern Normal Blood Pressure 108/58 L Blood Pressure Mean 74 Pulse Ox 97 Oxygen Delivery Method Room Air Room Air Room Air 03/21/24 11:53 03/21/24 12:00 03/21/24 13:07 Temperature Temperature Source Pulse Rate 56 L 68 82 Respiratory Rate 14 14 15 Respiratory Effort Respiratory Depth Respiratory Pattern Blood Pressure 107/59 L 94/47 L 108/68 Blood Pressure Mean 75 62 81 Pulse Ox 93 94 94 Oxygen Delivery Method Room Air MDM MDM MDM Narrative Medical decision making narrative: Differential diagnosis includes but not limited to COPD exacerbation versus CHF versus pleural effusions versus pneumonia versus pneumothorax. They do not feel that he has a pneumothorax because history and physical does not support this. I have very low suspicion for pulmonary embolism as well. Also the differential would be anemia requiring transfusion but he does not appear that pallor on examination. Comprehensive workup was pursued. His current pulse ox is 97% on room air without evidence of hypoxia. EKG obtained and interpreted by myself independently as normal sinus rhythm at 67 bpm with premature supraventricular complexes. I reviewed his laboratory work and although he has a WBC count of 39.7, this is consistent with his CLL. Hemoglobin 13.8 with hematocrit 43.6, platelet count low at 100. When compared to prior laboratories, he has had chronic thrombocytopenia. Electrolyte panel is significant for creatinine of 1.95 and glucose 117 with normal anion gap of 5. While BNP is elevated at 221, chest x-ray interpreted by myself independently shows no florid CHF or pneumonia. I reviewed the radiology report which comments on spiculated nodule. Patient is aware of this, and states that it was diagnosed over 2 years ago. I have low suspicion for pulmonary embolism because is not tachycardic or hypoxic. Upon repeat examination he is motivated for discharge. He did ambulate and had pulse ox ranging from 90 to 97% and he was mildly dyspneic on exertion. I discussed with him the possibility of admission, but he prefers outpatient follow-up stating that he has been seen by pulmonology previously but does not want to see the remelt furnace expediter that he had seen previously. He states that he felt improved when they gave him an albuterol inhaler previously. He was written a prescription for an albuterol inhaler to use 2 puffs inhaled as I do think that he has underlying COPD. He states that he was told that he has COPD. Once again, I do not feel that he requires observation or admission at this time. Return instructions to the emergency department were reviewed. Patient is motivated for discharge. Disposition is discharged home in stable condition. History & Record Review Additional record(s) reviewed:: Prior labs Lab Data Attestation: I reviewed the patient's lab results. Labs: Laboratory Results - last 24 hr 03/21/24 11:25 WBC 39.7 H* RBC 4.46 L Hgb 13.8 Hct 43.6 MCV 97.8 H MCH 30.9 MCHC 31.7 L RDW Std Deviation 58.2 H RDW Coeff of [place] 16.3 H Plt Count 100 L MPV 9.0 Immature Gran % (Auto) 0.200 Neut % (Auto) 9.9 L Lymph % (Auto) 79.9 H [place] % (Auto) 9.1 Eos % (Auto) 0.4 Baso % (Auto) 0.5 Absolute Neuts (auto) 4.0 Absolute Lymphs (auto) 31.72 H Nucleated RBC % 0 Diff Path Review May foll Reactive Lymphocytes 2+ Smudge Cells 1+ H Sodium 138 Potassium 4.9 Chloride 108 H Carbon Dioxide 24.0 Anion Gap 5 BUN 38 H Creatinine 1.95 H Estim Creat Clear Calc 31.30 Est GFR (MDRD) Af Amer 42 L Est GFR (MDRD) Non-Af 35 L BUN/Creatinine Ratio 19.5 Glucose 117 H Calcium 9.4 B-Natriuretic Peptide 221.9 H Radiography Diagnostic Testing: Clinical Impression(s) from Imaging Studies Chest X-Ray 03/21/24 11:45 IMPRESSION: Density overlying the left first rib could reflect the same spiculated suspicious nodule seen on the previous CT scan. Repeat CT scan the chest might be of value. Otherwise no acute pulmonary disease. Electronically Signed: Devin Milligan MD at 12:34 EST Reading Location ID and State: [address] [place] [address] Tel , Service support , Discharge Plan Triage Chief Complaint: Shortness of Breath ED Provider: Ulysses Jaramillo Dx/Rx/DC Orders Clinical Impression: CLL (chronic lymphocytic leukemia), COPD (chronic obstructive pulmonary disease), Dyspnea on exertion Instructions: ED COPD Flare, ED Dyspnea Prescriptions: New albuterol sulfate [Ventolin HFA] 90 mcg/actuation HFA aerosol inhaler 2 puff inhalation Q4H PRN PRN (Reason: Wheezing) Qty: 1 0RF No Action tamsulosin [Flomax] 0.4 mg capsule 0.4 mg PO DAILY metformin 1,000 MG tablet 1,000 mg PO BID triamterene-hydrochlorothiazid 1 EACH tablet 1 tab PO DAILY metoprolol succinate 100 mg tablet extended release 24 hr 100 mg PO DAILY lisinopril 10 mg tablet 10 mg PO QPM Primary Care Provider: Armando Ardon Referrals: Armando Ardon MD [Primary Care Provider] - 3-5 Days if not improving Activity Restrictions/Additional Instructions: Use your albuterol inhaler 2 puffs every 4 hours as needed for shortness of breath. You may need follow-up with a remelt furnace expediter. Return with increasing shortness of breath, new or worsening symptoms. Print Language: Ecuadorean Disposition Disposition: Home, Self Care
--- NOTE | 2024-03-21 11:45 | RAD_ITS ---
INDICATION: Shortness of breath EXAMINATION/TECHNIQUE: X-RAY - XR Chest 2 Views COMPARISON: Prior study dated: 12/01/[address] scan of the chest of 06/15/2023 FINDINGS: LINES/DEVICES: None. LUNGS: Density overlying the left first rib could reflect the previously noted spiculated left upper lobe nodule. No new focal infiltrate is seen. No evidence of pleural effusions. MEDIASTINUM AND CARDIOVASCULAR STRUCTURES: Cardiac silhouette not enlarged. Central airways and mediastinal contour are unremarkable. BONES AND SOFT TISSUES: Unremarkable. RAD/Chest PA and Lateral IMPRESSION: Density overlying the left first rib could reflect the same spiculated suspicious nodule seen on the previous CT scan. Repeat CT scan the chest might be of value. Otherwise no acute pulmonary disease. Electronically Signed: Devin Milligan MD at 12:34 EST ,
[2024-03-21 11:46] LABS: Absolute Lymphocyte Count 31.72 X10^3/uL (0.83-4.51); Basophil# 0.19 X10^3/uL; Basophil% 0.5 % (0-1); Eosinophil# 0.14 X10^3/uL; Eosinophils% 0.4 % (0-5); Hematocrit 43.6 % (40-54); Hemoglobin 13.8 g/dL (13.0-16.5); Lymphocyte # 31.72 X10^3/ul (0.83-4.51); Lymphocyte % 79.9 % (19-41); Mean Corp Hgb Conc 31.7 g/dL (32-36); Mean Corpuscular Hgb 30.9 pg (27.0-32.0); Mean Corpuscular Volume 97.8 fL (80-94); Monocyte# 3.61 X10^3/uL; Monocyte% 9.1 % (0-10); NRBC Flagged by Analyzer 0 % (0-5); Neutrophil # 3.99 X10^3/uL (2.7-7.7); Neutrophil % 9.9 % (47-70); POSITIVE COUNT YES; POSITIVE DIFFERENTIAL YES; POSITIVE MORPHOLOGY YES; Platelet Count 100 K/mm3 (150-450); RBC Distribution Width CV 16.3 % (11.6-14.6); RBC Distribution Width SD 58.2 fl (35.1-43.9); Red Blood Count 4.46 M/mm3 (4.6-6.2)
[2024-03-21 11:51] LABS: Differential Indicated SCAN CRITERIA MET; White Blood Count 39.7 K/mm3 (4.4-11.0)
[2024-03-21 12:18] LABS: Reactive Lymphocyte 2+
[2024-03-21 12:19] LABS: Smudge Cells 1+
[2024-03-21 12:24] LABS: Anion Gap 5 (5-15); BUN 38 mg/dL (7-18); BUN/Creat Ratio 19.5 RATIO (10-20); Calcium,Total 9.4 mg/dL (8.5-10.1); Chloride 108 mmol/L (98-107); Creatinine, Serum 1.95 mg/dL (0.70-1.30); EST Glomerular Filtration Rate 35 mL/min (>60); Est Glom Filt Rate - Afr Amer 42 mL/min (>60); Glucose 117 mg/dL (74-106); Potassium 4.9 mmol/L (3.5-5.1); Sodium Level 138 mmol/L (136-145)
[2024-03-21 12:40] LABS: BNP,B-Type NATRIURETIC PEPTIDE 221.9 pg/mL (0-100)
[2024-03-21] MEDS: Acetaminophen 325 MG Tablet 650 MG PO (12:51)
[2024-03-22 13:59] LABS: Pathologist Review Reviewed
== END 2024-03-21 14:07 | disposition home or self-care (01) ==
PROVIDERS: Emergency Provider Emergency Medicine; PCP Family Medicine; Visit Provider Emergency Medicine
DX: C91.10 Chronic lymphocytic leukemia of B-cell type not having achieved remission (principal); J44.9 Chronic obstructive pulmonary disease, unspecified; E11.22 Type 2 diabetes mellitus with diabetic chronic kidney disease; E78.5 Hyperlipidemia, unspecified; Z87.891 Personal history of nicotine dependence; I12.9 Hypertensive chronic kidney disease with stage 1 through stage 4 chronic kidney disease, or unspecified chronic kidney disease; N18.9 Chronic kidney disease, unspecified; R06.00 Dyspnea, unspecified
CPT/HCPCS: 71046; 80048; 83880; 85025; 93005; 99284

== ENCOUNTER 2024-05-18 14:26 | Emergency (ER) | payer MEDICARE, SELFPAY ==
[2024-05-18] VITALS (8 sets, daily range): BP systolic 82–135; BP diastolic 58–82; PULSE 65–96; RESP 17–28; TEMP 36.1–36.8; O2SAT 90–100; BMI 24.3
--- NOTE | 2024-05-18 14:34 | RAD_ITS ---
PROCEDURE: CHEST PA AND LATERAL REASON FOR EXAM: X-ray dated 03/21/2024. CT dated 06/15/2023. TECHNIQUE: Frontal and lateral views of the chest. COMPARISON: X-ray dated 03/21/2024. CT dated 12/01/2022. FINDINGS: The heart size is normal. The mediastinal contour is unremarkable. Opacity overlying the left 1st rib again noted corresponding to previously noted spiculated nodule in the left upper lobe. No new infiltrate pleural effusion or pneumothorax. The lungs appear hyperlucent suggestive of underlying COPD. The bones are unremarkable. RAD/Chest PA and Lateral IMPRESSION: Opacity overlying the left 1st rib again noted corresponding to previously note d spiculated nodule in the left upper lobe. The lungs appear hyperlucent suggestive of underlying COPD. Reading Location: [id number]
--- NOTE | 2024-05-18 14:34 | EKG12_ITS ---
Test Reason : Blood Pressure : */* mmHG Vent. Rate : 64 BPM Atrial Rate : 64 BPM P-R Int : 184 ms QRS Dur : 82 ms QT Int : 414 ms P-R-T Axes : 67 52 40 degrees QTcB Int : 427 ms Sinus rhythm with marked sinus arrhythmia Low voltage QRS Borderline ECG Confirmed by Ashwin Herring ([id number]), newspaper managing editor YULIA MORALES ([id number]) on 05/19/2024 9:31:56 AM Referred By: Valente Louie Confirmed By: Ashwin Herring
[2024-05-18 15:17] LABS: Absolute Lymphocyte Count 46.43 X10^3/uL (0.83-4.51); Absolute Neutrophil Count 6.6 X10^3/uL (2.0-7.7); Basophil# 0.32 X10^3/uL; Basophil% 0.5 % (0-1); Eosinophil# 0.14 X10^3/uL; Eosinophils% 0.2 % (0-5); Hemoglobin 12.9 g/dL (13.0-16.5); Lymphocyte # 46.43 X10^3/ul (0.83-4.51); Lymphocyte % 77.9 % (19-41); Mean Corp Hgb Conc 31.5 g/dL (32-36); Mean Corpuscular Hgb 30.4 pg (27.0-32.0); Mean Corpuscular Volume 96.5 fL (80-94); Mean Platelet Vol. 9.3 fl (6.2-12.0); Monocyte# 5.92 X10^3/uL; Monocyte% 9.9 % (0-10); NRBC Flagged by Analyzer 0 % (0-5); Neutrophil # 6.59 X10^3/uL (2.7-7.7); Neutrophil % 11.2 % (47-70); POSITIVE COUNT YES; POSITIVE DIFFERENTIAL YES; POSITIVE MORPHOLOGY YES; Platelet Count 123 K/mm3 (150-450); RBC Distribution Width CV 15.2 % (11.6-14.6); RBC Distribution Width SD 53.2 fl (35.1-43.9); Red Blood Count 4.25 M/mm3 (4.6-6.2); White Blood Count 59.6 K/mm3 (4.4-11.0)
[2024-05-18] MEDS: Ipratropium/Albuterol Sulfate 3 ML AMPUL.NEB INHALATION (15:36)
--- NOTE | 2024-05-18 15:37 | ED.VIS.DYS ---
HPI History of Present Illness Chief Complaint: Shortness of Breath Informant: patient and family Onset/Context/Timing Onset: Weeks Context: gradual Timing: Intermittent Quality: Positive for Dyspnea on exertion and Wheezing Current Severity: Mild Maximum Severity: Moderate Worsened by: Exertion Relieved by: other (Recently treated with prednisone when she is finished.) Associated Symptoms Chest Pain: Positive for None Narrative Narrative: 83-year-old male past medical history of COPD without oxygen, CLL, hypertension, prior melanoma, CKD, diabetes, pain management and being worked up for possible left upper lobe mass. Complains of exertional shortness of breath. Denies chest pain. No hemoptysis. No leg pain or swelling. No history of DVT or PE. No recent travel, surgery or immobilization. No recent hospitalization. PE Risk Factors: Positive for Cancer; Negative for Prior DVT or PE, Recent immobilization, Recent surgery or Recent travel Prior similar symptoms: Yes Recent Illness/Hospitalization: No PFSH PFS Medical History CLL (chronic lymphocytic leukemia) Chronic renal insufficiency Psoriasis Non-alcoholic fatty liver disease Malignant melanoma Essential (primary) hypertension Hyperlipidemia Benign nodular prostatic hyperplasia without lower urinary tract symptoms Sciatic nerve disease Type 2 diabetes mellitus Osteoarthritis Home Medications ?Medication ?Instructions ?Recorded ?Last Taken ?Type metformin 1,000 mg tablet 1,000 mg PO BID 01/20/13 11/30/22 History triamterene 37.5 1 tab PO DAILY 01/20/13 11/30/22 History mg-hydrochlorothiazide 25 mg tablet lisinopril 10 mg tablet 10 mg PO QPM 10/05/19 11/30/22 History tamsulosin 0.4 mg capsule (Flomax) 0.4 mg PO DAILY 03/05/23 Unknown History albuterol sulfate 90 mcg/actuation 2 puff inhalation Q4H PRN PRN 03/21/24 Unknown Rx aerosol inhaler (Ventolin HFA) Wheezing #1 ea metoprolol succinate 100 mg 100 mg PO DAILY 03/21/24 Unknown History tablet,extended release 24 hr albuterol sulfate 90 mcg/actuation 2 inh inhalation Q4H PRN shortness 05/18/24 Unknown Rx aerosol inhaler of breath or wheezing #8.5 grams prednisone 20 mg tablet 40 mg (2 x 20 mg) PO DAILY 7 days 05/18/24 Unknown Rx #14 tabs Allergy/AdvReac Type Severity Reaction Status Date / Time Penicillins Allergy Hives Verified 05/18/24 14:30 Family History Father Heart disease Thoracic aortic aneurysm (TAA) Mother No problems noted. Surgical History History of bilateral cataract extraction History of excision of lesion Social History household members: none Smoking Status: Former smoker quit date: 03/23/75 pack-years: 10 how long ago did patient quit smokin alcohol intake: current alcohol intake frequency: a few times a week substance use type: does not use caffeine: Yes Type: coffee Number of servings: 1 ROS ROS ED ROS Narrative Shortness of breath. Denies fever or chills. Denies chest pain. Denies nausea, vomiting or diarrhea. Constitutional Constitutional ED: Denies chills or fever(s) Eyes Eyes: Denies blurry vision ENT ENT ED: Denies ear pain Cardiovascular Cardiovascular: Denies chest pain Respiratory/Chest Respiratory/Chest: Reports dyspnea, dyspnea on exertion and sputum; Denies cough Gastrointestinal Gastrointestinal: Denies abdominal pain, constipation, diarrhea, melena, nausea or vomiting Genitourinary Genitourinary ED: Denies dysuria or hematuria Musculoskeletal Musculoskeletal: Denies arthralgias or back pain Integumentary Denies abscess or Abrasions Neurologic Neurologic: Denies headache(s) Psychiatric Psychiatric: Denies anxiety or depression Endocrine Endocrinology: Denies cold intolerance Hematologic/Lymphatic Hematologic/Lymphatic: Denies easy bleeding Allergic/Immunologic Allergic/Immunologic ED: Denies mouth swelling EXAM Physical Exam Narrative Exam Narrative: A very male sitting upright in bed. Initial blood pressure 82/65 he is tolerating that quite well. Pulse ox 90% on room air borderline hypoxic. But he is in no distress. Family at bedside. H EENT exam pupils round react light. Extra motions are intact. Moist mucous membranes. No droop. Normal speech. Neck nontender no JVD. No lymphadenopathy. Lungs are auscultation bilaterally. No rales, rhonchi or wheezing. Equal symmetrical. Prolonged expiratory phase. Heart regular rhythm rate about 75 no murmur. Chest wall and ribs nontender. Abdomen soft nontender. Moving all 4 extremities. 5 out of 5 recreational aide strength. Dorsi plantarflexion intact. Calves are nontender without edema or cords. Normal range of motion. Back nontender. Neurologically is awake and alert no focal motor deficits. Benign exam. Const Vital Signs: 05/18/24 14:27 05/18/24 15:36 05/18/24 15:36 Temperature 96.9 F L Temperature Source Temporal Pulse Rate 76 75 Respiratory Rate 24 H 18 18 Respiratory Effort Normal Respiratory Depth Normal Respiratory Pattern Normal Normal Blood Pressure 82/65 L Blood Pressure Mean 70 Pulse Ox 90 93 Oxygen Delivery Method Room Air Room Air 05/18/24 15:37 05/18/24 15:37 05/18/24 15:46 Temperature 98.2 F Temperature Source Oral Pulse Rate 66 Respiratory Rate 17 17 Respiratory Effort Respiratory Depth Respiratory Pattern Blood Pressure 114/65 Blood Pressure Mean 81 Pulse Ox 94 100 Oxygen Delivery Method Room Air Room Air Room Air 05/18/24 16:00 05/18/24 17:00 05/18/24 17:00 Temperature 98.2 F 98.2 F Temperature Source Oral Oral Pulse Rate 66 96 Respiratory Rate 18 20 H Respiratory Effort Short of Breath Respiratory Depth Shallow Respiratory Pattern Tachypnea Blood Pressure 107/66 135/82 H Blood Pressure Mean 79 99 Pulse Ox 94 93 Oxygen Delivery Method Room Air Room Air Room Air 05/18/24 18:00 Temperature 98.2 F Temperature Source Oral Pulse Rate 65 Respiratory Rate 28 H Respiratory Effort Respiratory Depth Respiratory Pattern Blood Pressure 102/58 L Blood Pressure Mean 72 Pulse Ox 95 Oxygen Delivery Method Room Air Positive well nourished and well developed; Negative for obese, cachectic, contractures or unkempt General Appearance ED: well developed and NAD; Negative for unkempt, cachectic, contractures or pallor Nutritional Appearance: Negative for cachectic or obese HEENT Reports moist mucous membranes atraumatic; Negative for trauma or tenderness Eyes PERRL and EOMs intact bilaterally General Eye ED: Negative for pale conjunctiva or scleral icterus Neck no lymphadenopathy, supple, no meningeal signs and no JVD Lymph Lymphatic: Negative for other Resp normal respiratory effort and clear to auscultation bilaterally Resp Narrative: Prolonged expiratory phase. No wheezing. Auscultation: Negative for rales, rhonchi, wheezes or diminished lung sounds Cardio regular rate, regular rhythm, S1 normal heart sound, S2 normal heart sound and no murmurs Rate: Negative for bradycardia or tachycardic Rhythm: Negative for abnormal rhythm GI non-tender, non-distended and no masses Auscultation: normoactive bowel sounds Palpation: soft; Negative for tender or guarding Back/Spine no CVA tenderness and normal to inspection General Back: Negative for CVA tenderness or tenderness Extremity normal to inspection General Extremety ED: Negative for edema or tenderness General Extremity: Negative for edema Neuro oriented x3 and CN's II-XII intact bilaterally Sensorium / Orientation: alert, oriented to person, oriented to place and oriented to time; Negative for orientation impaired or confused Speech: speech normal Motor Exam: strength 5/5 throughout; Negative for general weakness or strength abnormal Psych mental status grossly normal Appearance: Negative for unkempt Attitude: No agitated Mood & Affect: Negative for depressed, anxious or tearful Thought Process: normal thought process Skin no wounds and skin turgor normal General Skin Exam: Negative for jaundice or pallor Lesions: no lesions Rashes: no rashes Trauma: Negative for abrasion, laceration or puncture MDM MDM MDM Narrative Medical decision making narrative: 83-year-old male extensive past medical history of shortness of breath. Borderline hypotension. Will be treated with IV fluids with hypotension. Screening labs. CTA of his chest due to on the chest x-ray does have what appears to be a left upper lobe spiculated mass. Repeat exam patient is doing well at 6:50 PM. I went over all his test results of both he and his family. They note the concern that he does have underlying lung cancer has been nondiagnosed its gotten larger and is most likely spread to his right lung. They understand he needs biopsies and oncology follow-up. He was [facility] for his CLL he would prefer to be seen here because he lives in [place]. He will be discharged home on prednisone and an inhaler he said his breathing treatment did help his breathing. I went over all the test results with both he and his family. History & Record Review Discussion w/independent historian: Patient and Family Additional record(s) reviewed:: Prior inpatient record, Prior outpatient record, Prior ED visit and Prior labs Lab Data Attestation: I reviewed the patient's lab results. Lab results narrative: CBC shows a white count of 59,000 consistent with his CLL. H&H of 12 and 41. Electrolytes show a potassium of 5.2. Gap of 12. BUN and creatinine of 42 and 1.8 consistent with his renal insufficiency. CTA showed no PE. It did show a left lung mass very concerning for cancer that has enlarged from the prior CT. Also suspected mets to the right lung. There is small bilateral pleural effusions. Labs: Laboratory Results - last 24 hr 05/18/24 05/18/24 15:05 16:45 WBC 59.6 H* RBC 4.25 L Hgb 12.9 L Hct 41.0 MCV 96.5 H MCH 30.4 MCHC 31.5 L RDW Std Deviation 53.2 H RDW Coeff of [place] 15.2 H Plt Count 123 L MPV 9.3 Immature Gran % (Auto) 0.300 Neut % (Auto) 11.2 L Lymph % (Auto) 77.9 H [place] % (Auto) 9.9 Eos % (Auto) 0.2 Baso % (Auto) 0.5 Absolute Neuts (auto) 6.6 Absolute Lymphs (auto) 46.43 H Nucleated RBC % 0 Diff Path Review May foll Atypical Lymphocytes 2+ Reactive Lymphocytes 2+ Anisocytosis 1+ Sodium 136 Potassium 5.2 H Chloride Direct 102 Carbon Dioxide 21.7 L Anion Gap 12 BUN 42 H Creatinine 1.8 H Estim Creat Clear Calc 33.91 Est GFR (MDRD) Non-Af 36 L BUN/Creatinine Ratio 23.1 H Glucose 132 H Calcium 9.2 Troponin T High Sens 35 H Troponin T Hi Sens 2 Hr 31 H Troponin T Hi Sens 2Hr Delta 5 Radiography Chest X-Ray - ED: 2 View, Read by ED Physician, Normal, Heart, Mediastinum and Chronic Changes Diagnostic Testing: Clinical Impression(s) from Imaging Studies Chest X-Ray 05/18/24 14:34 IMPRESSION: Opacity overlying the left 1st rib again noted corresponding to previously noted spiculated nodule in the left upper lobe. The lungs appear hyperlucent suggestive of underlying COPD. Reading Location: [facility] Chest CTA 05/18/24 16:00 IMPRESSION: 1. No acute pulmonary embolus. 2. Increased size of the left upper lobe spiculated mass, with slight invasion into the inferior medial posterior aortic arch, and increased size of the mediastinal and bilateral hilar lymphadenopathy, compatible with lung cancer progression. 3. Development of several spiculated right lung pulmonary nodules, compatible with synchronous/metachronous lung cancer. 4. Development of moderate left and small right pleural effusion, which may be malignant in etiology. If clinically indicated, diagnostic and therapeutic thoracentesis could be performed for further evaluation. 5. Partially visualized splenomegaly. One or more dose reduction techniques were used (e.g., Automated exposure control, adjustment of the mA and/or kV according to patient size, use of iterative reconstruction technique). Reading Location: [facility] Chest x-ray, 2 views, AP and lateral, interpreted by by myself and the radiologist shows a left upper lobe spiculated opacity concerning for a mass. COPD and chronic changes. No pneumonia. No effusions. No CHF. Rhythm Strip Rhythm Strip: Sinus Rhythm Rate: 64 Ectopy: None EKG Initial EKG: Attestation: I personally reviewed and interpreted this EKG as follows: Interpretation: Sinus Rhythm and No Acute Injury Pattern Comments: Normal sinus rhythm rate of 64 no acute signs of MD nor ischemia. Discharge Plan Triage Chief Complaint: Shortness of Breath ED Provider: Valente Louie Dx/Rx/DC Orders Clinical Impression: Acute dyspnea, COPD (chronic obstructive pulmonary disease), Bilateral lung cancer, Hx of chronic lymphocytic leukemia Instructions: ED COPD Flare, ED Dyspnea Prescriptions: New prednisone 20 mg tablet 40 mg PO DAILY 7 Days Qty: 14 0RF albuterol sulfate 90 mcg/actuation HFA aerosol inhaler 2 inh inhalation Q4H PRN (Reason: shortness of breath or wheezing) Qty: 8.5 1RF No Action tamsulosin [Flomax] 0.4 mg capsule 0.4 mg PO DAILY metformin 1,000 MG tablet 1,000 mg PO BID triamterene-hydrochlorothiazid 1 EACH tablet 1 tab PO DAILY metoprolol succinate 100 mg tablet extended release 24 hr 100 mg PO DAILY albuterol sulfate [Ventolin HFA] 90 mcg/actuation HFA aerosol inhaler 2 puff inhalation Q4H PRN PRN (Reason: Wheezing) Qty: 1 0RF lisinopril 10 mg tablet 10 mg PO QPM Primary Care Provider: Armando Ardon Referrals: Jorge Goodman MD [Med Staff - Active Staff] - As soon as possible Armando Ardon MD [Primary Care Provider] - Activity Restrictions/Additional Instructions: Steroid prednisone 40 mg a day for the next 7 days. Use your inhaler 2 puffs as needed anytime you are short of breath or wheezing. As we discussed your CAT scan of your chest and the x-ray is very concerning for a left upper lobe cancer. This will need further evaluation and biopsy. It may have spread to your right lung also. Call and follow-up with the oncology office here tomorrow. I will leave him a message to get you in soon as possible. Print Language: Armenian Disposition Disposition: Home, Self Care
[2024-05-18] MEDS: 0.9% Normal Saline (1000mL) 1,000 ML 999 ML IV (15:48)
[2024-05-18 15:51] LABS: Anion Gap 12 (5-15); BUN 42 mg/dL (4-19); BUN/Creat Ratio 23.1 RATIO (10-20); Calcium 9.2 mg/dL (7.6-11.0); Carbon Dioxide 21.7 mmol/L (22.0-29.0); Chloride 102 mmol/L (96-108); Creatinine, Serum 1.8 mg/dL (0.8-1.3); EST Glomerular Filtration Rate 36 (>60); Estimated Creatinine Clearance 33.91 ml/min; Glucose 132 mg/dL (70-99); Potassium 5.2 mmol/L (3.3-5.1); Sodium Level 136 mmol/L (133-145); Troponin T High Sensitivity 35 ng/L (<=22)
[2024-05-18 15:58] LABS: Differential Indicated SCAN CRITERIA MET
--- NOTE | 2024-05-18 16:00 | CT_ITS ---
PROCEDURE: CTA CHEST W/WO CONTRAST REASON FOR EXAM: 83-year-old male, left upper lung mass, shortness of breath and hypoxia. TECHNIQUE: CTA imaging of the chest with intravenous contrast. 3D reconstructions. CONTRAST: [id number] COMPARISON: Same day chest radiograph, CT chest 06/15/2023. FINDINGS: Hardware: None. Lymph nodes: Increased size of the mediastinal and bilateral hilar lymphadenopathy. Heart: The heart is normal in size without pericardial effusion. Moderate coronary artery and thoracic aortic calcifications. Development of irregularity along the inferior medial posterior aortic arch lumen, at site of marked enlarged lymph node. RV/LV Diameter Ratio: N/A Thoracic Aorta: No thoracic aortic aneurysm or dissection. Pulmonary Vessels: No evidence of acute pulmonary emboli through the major subsegmental branches. Lungs and Airways: The central airways are patent. Severe emphysema with stable bulla/pneumatoceles within the right upper lobe. Increased size of the left upper lobe spiculated mass measuring 3.3 x 2.8 cm, previously 1.7 x 1.5 cm when measured in a similar fashion. Development of several small spiculated right pulmonary nodules, for example within the right upper lobe measuring 1.1 x 0.9 cm. Development of a moderate-sized left and small right pleural effusion. No pneumothorax. Upper Abdomen: Partially visualized splenomegaly. Lower esophageal and upper abdominal lymphadenopathy. Bones: Thoracic spondylosis. Chronic appearing rib fracture deformities. CT/CTA Chest W/WO Contrast IMPRESSION: 1. No acute pulmonary embolus. 2. Increased size of the left upper lobe spiculated mass, with slight invasion into the inferior medial posterior aortic arch, and increased size of the mediastinal and bilateral hilar lymphadenopathy, comp atible with lung cancer progression. 3. Development of several spiculated right lung pulmonary nodules, compatible w ith synchronous/metachronous lung cancer. 4. Development of moderate left and small right pleural effusion, which may be malignant in etiology. If clinically indicated, diagnostic and therapeutic thoracentesis could be performed for further evaluat ion. 5. Partially visualized splenomegaly. One or more dose reduction techniques were used (e.g., Automated exposure contr ol, adjustment of the mA and/or kV according to patient size, use of iterative reconstruction technique). Reading Location: [id number]
[2024-05-18 16:03] LABS: Atypical Lymphocyte 2+ %; Reactive Lymphocyte 2+
[2024-05-18 16:05] LABS: Anisocytosis 1+
[2024-05-18 17:14] LABS: TROPONIN VARIANCE 2 HR 5; Troponin T High Sens 2 HR 31 ng/L (<=22)
[2024-05-20 09:25] LABS: Pathologist Review Reviewed
== END 2024-05-18 19:15 | disposition home or self-care (01) ==
PROVIDERS: Emergency Provider Emergency Medicine; PCP Family Medicine; Referring Provider Emergency Medicine; Visit Provider Emergency Medicine
DX: R06.09 Other forms of dyspnea (principal); C34.91 Malignant neoplasm of unspecified part of right bronchus or lung; C34.92 Malignant neoplasm of unspecified part of left bronchus or lung; C91.10 Chronic lymphocytic leukemia of B-cell type not having achieved remission; J44.9 Chronic obstructive pulmonary disease, unspecified; E11.22 Type 2 diabetes mellitus with diabetic chronic kidney disease; I12.9 Hypertensive chronic kidney disease with stage 1 through stage 4 chronic kidney disease, or unspecified chronic kidney disease; N18.9 Chronic kidney disease, unspecified; Z87.891 Personal history of nicotine dependence; E78.5 Hyperlipidemia, unspecified
CPT/HCPCS: 71046; 71275; 80048; 84484; 85025; 93005; 94640; 94760; 96360; 96361; 99252; 99283; Q9967; A4216; G0463

== ENCOUNTER 2024-05-19 10:30 | Emergency (ER) | payer MEDICARE, SELFPAY ==
[2024-05-19 10:31] VITALS: BP 83/47; PULSE 68; RESP 15; TEMP 36.2; O2SAT 91; BMI 24.4
[2024-05-19 10:45] VITALS: O2SAT 96
[2024-05-19] MEDS: Ipratropium/Albuterol Sulfate 3 ML AMPUL.NEB INHALATION (11:02)
[2024-05-19] MEDS: predniSONE 20 MG Tablet 60 MG PO (11:05)
[2024-05-19 11:12] VITALS: PULSE 72; RESP 16; O2SAT 93
--- NOTE | 2024-05-19 12:13 | ED.VIS.DYS ---
HPI History of Present Illness Chief Complaint: Shortness of Breath Narrative Narrative: 83-year-old male past medical history of CLL, COPD, presents with dyspnea increasing since yesterday evening. Of note, he was seen and evaluated in the emergency department and his family states that he had a CT of the chest which showed he had bilateral masses in his lungs. He was supposed to follow-up with a local oncologist as he had been previously seen at [facility] for his CLL but wants to go somewhere closer to where he lives. His family states that he was unable to clam picker his albuterol MDI and steroids and has had increasing difficulty breathing. Additionally, they were unable to get a hold of the local oncologist as they had been referred to Dr. Goodman last evening. He presents with increasing difficulty breathing that has been ongoing since before his evaluation last night. [facility] Medical History CLL (chronic lymphocytic leukemia) Chronic renal insufficiency Psoriasis Non-alcoholic fatty liver disease Malignant melanoma Essential (primary) hypertension Hyperlipidemia Benign nodular prostatic hyperplasia without lower urinary tract symptoms Sciatic nerve disease Type 2 diabetes mellitus Osteoarthritis Home Medications ?Medication ?Instructions ?Recorded ?Last Taken ?Type metformin 1,000 mg tablet 1,000 mg PO BID 01/20/13 11/30/22 History triamterene 37.5 1 tab PO DAILY 01/20/13 11/30/22 History mg-hydrochlorothiazide 25 mg tablet lisinopril 10 mg tablet 10 mg PO QPM 10/05/19 11/30/22 History tamsulosin 0.4 mg capsule (Flomax) 0.4 mg PO DAILY 03/05/23 Unknown History albuterol sulfate 90 mcg/actuation 2 puff inhalation Q4H PRN PRN 03/21/24 Unknown Rx aerosol inhaler (Ventolin HFA) Wheezing #1 ea metoprolol succinate 100 mg 100 mg PO DAILY 03/21/24 Unknown History tablet,extended release 24 hr albuterol sulfate 90 mcg/actuation 2 inh inhalation Q4H PRN shortness 05/18/24 Unknown Rx aerosol inhaler of breath or wheezing #8.5 grams prednisone 20 mg tablet 40 mg (2 x 20 mg) PO DAILY 7 days 05/18/24 Unknown Rx #14 tabs Allergy/AdvReac Type Severity Reaction Status Date / Time Penicillins Allergy Hives Verified 05/19/24 10:34 Family History Father Heart disease Thoracic aortic aneurysm (TAA) Mother No problems noted. Surgical History History of bilateral cataract extraction History of excision of lesion Social History household members: none Smoking Status: Former smoker quit date: 03/23/75 pack-years: 10 how long ago did patient quit smokin alcohol intake: current alcohol intake frequency: a few times a week substance use type: does not use caffeine: Yes Type: coffee Number of servings: 1 ROS ROS ED ROS Narrative Pertinent positives: Positive for difficulty breathing, occasional cough. History of lung carcinoma/masses. Pertinent negatives. No fevers or chills, no nausea or vomiting, no leg swelling. EXAM Physical Exam Narrative Exam Narrative: Afebrile. Vital signs noted. Nontoxic-appearing. Cardiovascular examination reveals a regular rate and rhythm. Lungs are clear to auscultation bilaterally. Abdomen soft and nontender with normal active bowel sounds. Const Vital Signs: 05/19/24 10:31 05/19/24 10:45 05/19/24 11:12 Temperature 97.2 F L Temperature Source Temporal Pulse Rate 68 72 Respiratory Rate 15 16 Respiratory Effort Short of Breath Respiratory Depth Normal Respiratory Pattern Normal Normal Blood Pressure 83/47 L Blood Pressure Mean 59 Pulse Ox 91 Oxygen Delivery Method Room Air Room Air 05/19/24 11:12 Temperature Temperature Source Pulse Rate Respiratory Rate Respiratory Effort Respiratory Depth Respiratory Pattern Blood Pressure Blood Pressure Mean Pulse Ox 93 Oxygen Delivery Method Room Air MDM MDM MDM Narrative Medical decision making narrative: Initially, patient has a pulse ox of 91 to 93% on room air. He was hypotensive at 83, but is mentating well and is awake and alert. I did review his prior records, and the same thing happened last evening where he has a low blood pressure, but it gradually increases over time. He had a full workup including CTA of the chest yesterday evening and was discharged around 7 PM. I do feel that this may be more of a COPD exacerbation or related to his bilateral lung masses. There is no evidence of PE, and he was discharged on an albuterol MDI and prednisone burst. He was given a DuoNeb aerosolized treatment here, and reexamined and feels improved. He was also given a dose of oral steroids prednisone 60 mg here in the emergency department. As he was a fast pass for oncology, patient states that he has been seen by hematology/oncology and has an appointment for follow-up on Thursday. At this point in time, I do not feel he requires admission or any additional testing as he had it performed within the last 24 hours. I feel he can be discharged to follow-up with oncology. Return instructions to the emergency department were reviewed. Patient is motivated for discharge. Disposition is discharged home in stable condition. History & Record Review Discussion w/independent historian: Patient and Family Additional record(s) reviewed:: Prior ED visit and Prior labs Discharge Plan Triage Chief Complaint: Shortness of Breath ED Provider: Ulysses Jaramillo Dx/Rx/DC Orders Clinical Impression: COPD (chronic obstructive pulmonary disease), Acute dyspnea, Bilateral lung cancer Instructions: Lung Cancer Plan for Future, ED COPD Flare, ED Dyspnea Prescriptions: No Action tamsulosin [Flomax] 0.4 mg capsule 0.4 mg PO DAILY metformin 1,000 MG tablet 1,000 mg PO BID triamterene-hydrochlorothiazid 1 EACH tablet 1 tab PO DAILY metoprolol succinate 100 mg tablet extended release 24 hr 100 mg PO DAILY albuterol sulfate [Ventolin HFA] 90 mcg/actuation HFA aerosol inhaler 2 puff inhalation Q4H PRN PRN (Reason: Wheezing) Qty: 1 0RF prednisone 20 mg tablet 40 mg PO DAILY 7 Days Qty: 14 0RF albuterol sulfate 90 mcg/actuation HFA aerosol inhaler 2 inh inhalation Q4H PRN (Reason: shortness of breath or wheezing) Qty: 8.5 1RF lisinopril 10 mg tablet 10 mg PO QPM Primary Care Provider: Armando Ardon Referrals: Mine Sousa MD [Med Staff - Active Staff] - Keep Manny appointment Armando Ardon MD [Primary Care Provider] - Activity Restrictions/Additional Instructions: supervisor braiding your medications from the pharmacy today and use the albuterol inhaler as directed. Take the steroid burst as well, you can start it tomorrow because you were given a dose of steroids here in the emergency department. Print Language: Setswana Disposition Disposition: Home, Self Care
[2024-05-19 12:21] VITALS: BP 100/56; PULSE 72; RESP 18; TEMP 35.9; O2SAT 91
== END 2024-05-19 12:22 | disposition home or self-care (01) ==
PROVIDERS: Emergency Provider Emergency Medicine; PCP Family Medicine; Visit Provider Emergency Medicine
DX: J44.9 Chronic obstructive pulmonary disease, unspecified (principal); C34.91 Malignant neoplasm of unspecified part of right bronchus or lung; C34.92 Malignant neoplasm of unspecified part of left bronchus or lung; C91.11 Chronic lymphocytic leukemia of B-cell type in remission; E11.22 Type 2 diabetes mellitus with diabetic chronic kidney disease; Z87.891 Personal history of nicotine dependence; N18.9 Chronic kidney disease, unspecified; I12.9 Hypertensive chronic kidney disease with stage 1 through stage 4 chronic kidney disease, or unspecified chronic kidney disease; E78.5 Hyperlipidemia, unspecified
CPT/HCPCS: 94640; 99282; A4216